=== PATIENT | female | born 1940 | race Caucasian/White ===

== ENCOUNTER 2016-12-24 08:02 | Outpatient (CLI) | payer MEDICARE, OTHER ==
[2016-12-24 12:39] LABS: BASOPHILS # (AUTO) 0.1 10^3/uL (0.0-0.1); BASOPHILS % (AUTO) 1.3 %; EOSINOPHILS # (AUTO) 0.4 10^3/uL (0.0-0.7); EOSINOPHILS % (AUTO) 4.7 %; HCT - HEMATOCRIT 42.6 % (37.0-47.0); HGB - HEMOGLOBIN 14.5 g/dL (12.0-16.0); LYMPHOCYTES % (AUTO) 25.5 %; MEAN CORPUSCULAR HEMOGLOBIN 28.5 pg (27.0-31.0); MONOCYTES # (AUTO) 0.7 10^3/uL (0.0-1.0); MONOCYTES % (AUTO) 8.8 %; NEUTROPHILS # (AUTO) 4.8 10^3/uL (1.5-6.6); NEUTROPHILS % (AUTO) 59.7 %; RED BLOOD COUNT 5.07 10^6/uL (4.20-5.40); RED CELL DISTRIBUTION WIDTH 15.3 % (12.0-15.0)
[2016-12-24 13:43] LABS: ALBUMIN/GLOBULIN RATIO 1.5 (1.0-2.2); BILIRUBIN,TOTAL 0.8 mg/dL (0.2-1.0); BUN - BLOOD UREA NITROGEN 12 mg/dL (6-20); CALCIUM 9.5 mg/dL (8.5-10.3); CARBON DIOXIDE - CO2 29 mmol/L (21-32); CHLORIDE 95 mmol/L (101-111); CHOL/HDL RATIO 3.1 (<4.4); CHOLESTEROL 150 mg/dL; CREATININE 0.7 mg/dL (0.4-1.0); GFR - MDRD 81 (>89); GLUCOSE 87 mg/dL (70-100); HDL CHOLESTEROL 48 mg/dL; LDL/HDL RATIO 1.7 (<4.4); POTASSIUM 3.6 mmol/L (3.5-5.0); SODIUM 131 mmol/L (135-145); TRIGLYCERIDES 106 mg/dL; VLDL CHOLESTEROL 21 mg/dL
== END 2016-12-24 08:03 | disposition home or self-care (01) ==
LOC: LAB.R 08:02
PROVIDERS: ATTEND Internal Medicine
DX: E78.5 Hyperlipidemia, unspecified (principal); Z79.899 Other long term (current) drug therapy; D12.6 Benign neoplasm of colon, unspecified; I10 Essential (primary) hypertension
CPT/HCPCS: 80053; 80061; 85025

== ENCOUNTER 2017-01-06 13:02 | Outpatient (CLI) | payer MEDICARE, OTHER ==
--- NOTE | 2017-01-07 13:41 | Mammography Report ---
DIGITAL SCREENING MAMMOGRAM: 01/06/2017 CLINICAL INDICATION: A 76-year-old, for screening. COMPARISON: 12/2014, 09/2012, 06/2010, 06/2009. TECHNIQUE: Routine CC and MLO projections were obtained of the breasts. FINDINGS: Scattered fibroglandular tissue is present within the breasts. There are no dominant bertrand s, suspicious microcalcifications, or secondary signs of malignancy. In comparison to the previous st udies, there are no significant changes. ASSESSMENT: NO MAMMOGRAPHIC EVIDENCE OF MALIGNANCY. NO SIGNIFICANT INTERVAL CHANGES. RECOMMENDATION: Screening mammography is recommended annually. BIRADS category 1 - negative. STANDARD QUALIFYING STATEMENTS 1. This examination was reviewed with the aid of Computed-Aided Detection (CAD). 2. A negative or benign imaging report should not delay biopsy if clinically suspicious findings are present. Consider surgical consultation if warranted. More than 5% of cancers are not identified by i maging. 3. Dense breasts may obscure an underlying neoplasm. JOB #: [id number] EXT JOB #:[id number]
== END 2017-01-06 13:03 | disposition home or self-care (01) ==
LOC: DI 13:02
PROVIDERS: ATTEND Internal Medicine
DX: Z12.31 Encounter for screening mammogram for malignant neoplasm of breast (principal)
CPT/HCPCS: 77067

== ENCOUNTER 2018-01-13 15:30 | Outpatient (CLI) | payer MEDICARE, OTHER ==
--- NOTE | 2018-01-14 15:56 | Mammography Report ---
Reason: SCREENING MAMMO Procedure Date: 01/13/2018 Accession Number: [id number] / [id number] Procedure: [facility]O - Screening Mammo Dig Bilat CPT Code: FULL RESULT: EXAM: Screening Mammo Dig Bilat DATE: 01/13/2018 4:00 PM CLINICAL HISTORY: Screening mammogram TECHNIQUE: Bilateral CC and MLO views were obtained. COMPARISON: Mammogram 01/06/2017 FINDINGS: There are scattered fibroglandular densities. There are benign-appearing calcifications and lymph nodes. No suspicious masses, clustered microcalcifications, or regions of architectural distortion are identified. IMPRESSION: Benign findings RECOMMENDATION: Routine annual screening unless otherwise clinically indicated. BIRADS CATEGORY 2: Benign findings STANDARD QUALIFYING STATEMENTS: 1. This examination was reviewed with the aid of Computer-Aided Detection (CAD). 2. A negative or benign imaging report should not delay biopsy if clinically suspicious findings are present. Consider surgical consultation if warrented. More than 5% of cancers are not identified by imaging. 3. Dense breasts may obscure an underlying neoplasm.
== END 2018-01-13 15:31 | disposition home or self-care (01) ==
LOC: DI 15:30
PROVIDERS: ATTEND Internal Medicine
DX: Z12.31 Encounter for screening mammogram for malignant neoplasm of breast (principal)
CPT/HCPCS: 77067

== ENCOUNTER 2018-01-28 08:30 | Outpatient (CLI) | payer MEDICARE, OTHER ==
[2018-01-28 13:40] LABS: BASOPHILS # (AUTO) 0.1 10^3/uL (0.0-0.1); BASOPHILS % (AUTO) 0.9 %; EOSINOPHILS # (AUTO) 0.4 10^3/uL (0.0-0.7); EOSINOPHILS % (AUTO) 4.3 %; HGB - HEMOGLOBIN 14.7 g/dL (12.0-16.0); LYMPHOCYTES % (AUTO) 23.4 %; MEAN CORPUSCULAR HEMOGLOBIN 29.1 pg (27.0-31.0); MEAN CORPUSCULAR HGB CONC 34.3 g/dL (32.0-36.0); MEAN PLATELET VOLUME 9.6 fL (7.9-10.8); MONOCYTES # (AUTO) 0.7 10^3/uL (0.0-1.0); MONOCYTES % (AUTO) 8.5 %; NEUTROPHILS # (AUTO) 5.2 10^3/uL (1.5-6.6); NEUTROPHILS % (AUTO) 62.9 %; PLT - PLATELET COUNT 293 10^3/uL (130-450); RED BLOOD COUNT 5.05 10^6/uL (4.20-5.40); RED CELL DISTRIBUTION WIDTH 15.2 % (12.0-15.0); WHITE BLOOD COUNT 8.3 x10^3/uL (4.8-10.8)
[2018-01-28 13:58] LABS: ALBUMIN 4.2 g/dL (3.2-5.5); ALBUMIN/GLOBULIN RATIO 1.3 (1.0-2.2); ALKALINE PHOSPHATASE 71 IU/L (42-121); ALT ALANINE AMINOTRANSFERASE 15 IU/L (10-60); AST ASPARTATE AMINOTRANSFERASE 21 IU/L (10-42); BUN - BLOOD UREA NITROGEN 12 mg/dL (6-20); CALCIUM 9.6 mg/dL (8.5-10.3); CARBON DIOXIDE - CO2 29 mmol/L (21-32); CHLORIDE 91 mmol/L (101-111); CHOL/HDL RATIO 3.2 (<4.4); CHOLESTEROL 151 mg/dL; CREATININE 0.7 mg/dL (0.4-1.0); GFR - MDRD 81 (>89); GLUCOSE 89 mg/dL (70-100); HDL CHOLESTEROL 47 mg/dL; LDL CHOLESTEROL,CALCULATED 77 mg/dL; LDL/HDL RATIO 1.6 (<4.4); SODIUM 130 mmol/L (135-145); TOTAL PROTEIN 7.4 g/dL (6.7-8.2); VLDL CHOLESTEROL 27 mg/dL
== END 2018-01-28 08:31 ==
LOC: LAB.R 08:30
PROVIDERS: ATTEND Internal Medicine
DX: R63.4 Abnormal weight loss (principal); E78.5 Hyperlipidemia, unspecified; I10 Essential (primary) hypertension; Z79.899 Other long term (current) drug therapy
CPT/HCPCS: 80053; 80061; 83721; 85025

== ENCOUNTER 2018-02-15 09:56 | Outpatient (CLI) | payer MEDICARE, OTHER ==
--- NOTE | 2018-02-16 13:01 | DEXA Report ---
Reason: OSTEOPENIA,POSTMENOPAUSAL Procedure Date: 02/15/2018 Accession Number: [id number] / [id number] Procedure: DEX - Dexa Spine and/or Hip CPT Code: FULL RESULT: EXAM: Dexa Spine and/or Hip DATE: 02/15/2018 10:30 AM CLINICAL HISTORY: OSTEOPENIA,POSTMENOPAUSAL TECHNIQUE: Dual energy x-ray absorptiometry (DXA) was performed on a [employer] System. Regions measured are the AP Spine, femoral neck, and if needed forearm. COMPARISON: None. In accordance with the International Society for Clinical Densitometry (ISCD) guidelines, data from previous exams may be reanalyzed using current recommendations and techniques. This is done to allow a more accurate basis for comparison with the current study. FINDINGS: The data for the lumbar spine is as follows: BMD (g/cm/cm) T-SCORE Z-SCORE REGION L1 1.016 -1.0 1.2 L2 1.092 -0.9 1.2 L3 1.172 -0.2 1.9 L4 1.290 0.7 2.9 TOTAL 1.166 -0.1 2.0 NOTE: All evaluable vertebrae are used for classification The data for the hip is as follows: BMD (g/cm/cm) T-SCORE Z-SCORE REGION Neck 0.786 -1.8 0.5 TOTAL 0.812 -1.6 0.6 NOTE: The femoral neck or total proximal femur, whichever is lowest, is used for classification. IMPRESSION: THE WHO CLASSIFICATION BASED ON THE INTERNATIONAL REFERENCE STANDARD IS OSTEOPENIA.. THE FRACTURE RISK IS INCREASED. RECOMMENDATION: Patients with diagnosis of osteoporosis or osteopenia should have regular bone mineral density assessment. For those eligible for Medicare, routine testing is allowed once every 2 years. Testing frequency can be increased for patients who have rapidly progressing disease or for those who are receiving medical therapy to restore bone mass. COMMENT: World Health Organization (WHO) definitions for osteoporosis and osteopenia: NORMAL BMD: T-score at -1.0 or higher, fracture risk is low OSTEOPENIA BMD: T-score between -1.0 and -2.5, fracture risk is increased. OSTEOPOROSIS BMD: T-score at -2.5 or lower, fracture risk is high. National Osteoporosis Foundation recommends: 1. Obtain adequate dietary calcium (at least 1200 mg per day) and vitamin D (400-800 international units per day). 2. Participate, as appropriate, in regular weightbearing and muscle-strengthening exercise. 3. Avoid tobacco use and reduce alcohol and caffeine intake. 4. For more detailed information see the website at www.NOF.org.
== END 2018-02-15 09:57 | disposition home or self-care (01) ==
LOC: DI 09:56
PROVIDERS: ATTEND Internal Medicine
DX: M85.88 Other specified disorders of bone density and structure, other site (principal); Z78.0 Asymptomatic menopausal state
CPT/HCPCS: 77080

== ENCOUNTER 2018-06-21 08:00 | Outpatient (CLI) | payer MEDICARE, OTHER ==
[2018-06-21 13:07] LABS: CALCIUM 9.9 mg/dL (8.5-10.3); CREATININE 0.8 mg/dL (0.4-1.0)
== END 2018-06-21 23:59 | disposition home or self-care (01) ==
LOC: LAB.R 08:00
PROVIDERS: ATTEND Internal Medicine
DX: I10 Essential (primary) hypertension (principal)
CPT/HCPCS: 80048

== ENCOUNTER 2018-08-23 13:12 | Outpatient (CLI) | payer MEDICARE, OTHER ==
[2018-08-23 15:12] LABS: THYROID STIMULATING HORMONE 1.42 uIU/mL (0.34-5.60)
[2018-08-23 15:15] LABS: FREE T4 (FREE THYROXINE) 1.06 ng/dL (0.58-1.64)
== END 2018-08-23 13:13 | disposition home or self-care (01) ==
LOC: LAB 13:12
PROVIDERS: ATTEND Family Medicine
DX: R25.1 Tremor, unspecified (principal); R63.4 Abnormal weight loss
CPT/HCPCS: 36415; 84439; 84443; 84481

== ENCOUNTER 2018-11-25 11:50 | Outpatient (CLI) | payer MEDICARE, OTHER | END 2018-11-25 11:51 | disposition critical access hospital (66) | LOC: EMS 11:50 | PROVIDERS: ATTEND Surgery | DX: M54.5 Low back pain (principal); W18.39XA Other fall on same level, initial encounter; Y92.008 Other place in unspecified non-institutional (private) residence as the place of occurrence of the external cause | CPT/HCPCS: A0425; A0429 ==

== ENCOUNTER 2018-11-25 11:55 | Emergency (ER) | payer MEDICARE, OTHER ==
--- NOTE | 2018-11-25 12:07 | ED Physician Documentation ---
History of Present Illness - Stated complaint Stated Complaint: GLF - Chief complaint Chief Complaint: Back Pain - History obtained from History obtained from: Patient - History of Present Illness Timing: Prior to arrival - Additonal information Additional information: Patient is a 78-year-old female presenting after mechanical fall just prior to arrival. Patient reports that she was on the ground organizing closed when she stood up and stumbled backwards. Patient reports she struck her right arm onto the door and then fell down directly onto her buttocks. Patient did not strike her head or lose consciousness. Patient was able to get up and walk on her own. Patient reports skin tear to the right forearm, as well as low back pain and coccyx pain. Patient denies headache, vision changes, nausea, vomiting, neck pain, other back pain, chest pain, abdominal pain or extremity injury. Patient was otherwise at her normal state of health prior to this incident. No anticoagulation. No other improving or worsening factors.Tetanus current. Review of Systems Constitutional: denies: Fever Eyes: denies: Loss of vision Cardiac: denies: Chest pain / pressure Respiratory: denies: Dyspnea GI: denies: Abdominal Pain, Nausea, Vomiting, Diarrhea : denies: Dysuria Skin: reports: Laceration (s) Musculoskeletal: reports: Back pain. denies: Neck pain, Extremity pain Neurologic: denies: Focal weakness, Numbness PD PAST MEDICAL HISTORY - Past Medical History Past Medical History: Yes Cardiovascular: Hypertension, High cholesterol Respiratory: None Endocrine/Autoimmune: None GI: Colon polyps : None HEENT: Chronic vision loss, Macular degeneration, Other Psych: Depression, Anxiety, Panic attacks Musculoskeletal: None Derm: None - Past Surgical History Past Surgical History: Yes General: Colonoscopy HEENT: Cataracts, Tonsil/Adenoidectomy - Present Medications Home Medications: Ambulatory Orders Medication Instructions Recorded Confirmed Atorvastatin Calcium [Lipitor] 1 tab DAILY 01/04/14 11/25/18 Hydrocodone/Acetaminophen 1 each PO Q6H PRN #14 tablet 11/25/18 [Hydrocodon-Acetaminophen 5-325] - Allergies Allergies/Adverse Reactions: Allergies Allergy/AdvReac Type Severity Reaction Status Date / Time No Known Drug Allergies Allergy Verified 11/25/18 12:04 - Social History Does the pt smoke?: No Smoking Status: Never smoker Does the pt drink ETOH?: No Does the pt have substance abuse?: No PD ED PE NORMAL - Vitals Vital signs reviewed: Yes - General General: Alert and oriented X 3, No acute distress, Well developed/nourished - HEENT HEENT: Atraumatic, Moist mucous membranes, Pharynx benign, Dentition benign - Neck Neck: No bony TTP - Cardiac Cardiac: RRR, No murmur - Respiratory Respiratory: No respiratory distress, Clear bilaterally - Abdomen Abdomen: Normal bowel sounds, Soft, Non tender, Non distended - Back Back: No spinal TTP, Other (Coccyx pain) - Derm Derm: Normal color, Warm and dry, No rash, Other (Superficial skin tear to dorsum of mid right forearm otherwise uncomplicated) - Extremities Extremities: No deformity, No tenderness to palpate - Neuro Neuro: Alert and oriented X 3, No motor deficit, No sensory deficit - Psych Psych: Normal mood, Normal affect Results - Vitals Vitals: Vital Signs - 24 hr 11/25/18 12:00 Temperature 36.5 C Heart Rate 84 Respiratory 16 Rate Blood Pressure 193/109 H O2 Saturation 95 Oxygen O2 Source Room air PD MEDICAL DECISION MAKING - ED course Complexity details: reviewed results, re-evaluated patient, considered differential, d/w patient, d/w search engine optimization consultant ED course: Patient presenting with pain to the coccyx only after fall backwards. Patient also has a skin tear to the right forearm, which does not require closure or other intervention. Tetanus is current. Do not find significant pain in the midline spine, but did obtain lumbar spine films, as well as pelvis x-rays. Do not feel patient requires other imaging or invasive testing at this time. Patient was comfortable did not require medications. Plain films returned with evidence of T12 wedging otherwise uncomplicated. Patient is not tender to the area and otherwise is neurovascularly intact. Discussed with orthopedic surgery who recommended TLSO bracing and follow-up with spine surgeon in [place]. Advised patient of results and recommendations including use of brace medications, supportive cares, and follow-up. Patient and family voiced understanding and are comfortable with discharge plan. Departure - Departure Disposition: 01 Home, Self Care Clinical Impression: Thoracic spine fracture Qualifiers: Encounter type: initial encounter Thoracic vertebra fracture level: T12 Fracture type: closed Fracture morphology: wedge compression Qualified Code(s): S22.080A - Wedge compression fracture of T11-T12 vertebra, initial encounter for closed fracture Condition: Good Instructions: ED Fx Comp Vertebral Follow-Up: Lan Agustin MD [Physician No Access] - Within 3 Days Prescriptions: Hydrocodone/Acetaminophen [Hydrocodon-Acetaminophen 5-325] 1 each PO Q6H PRN #14 tablet PRN Reason: pain Comments: Please keep the brace in place until orthopedic surgery follow-up. Recommend contacting [facility] orthopedics to schedule outpatient follow-up in the next 2 to 3 days. May use [place] as prescribed if needed, but please do not combine with Tylenol, alcohol, driving. If taking [place] regularly, recommend use of stool softener or laxative to avoid constipation. If not taking [place], may use ibuprofen/Tylenol. Return to ED sooner if expands worsening symptoms or have other concerns.
--- NOTE | 2018-11-25 13:06 | XRAY Report ---
Reason: fell onto buttocks, coccyx pain Procedure Date: 11/25/2018 Accession Number: [id number] / [id number] Procedure: XR - Pelvis 3 View CPT Code: FULL RESULT: EXAM: PELVIS RADIOGRAPHY EXAM DATE: 11/25/2018 12:19 PM. CLINICAL HISTORY: Fell onto buttocks, coccyx pain. COMPARISON: None. TECHNIQUE: 3 views. FINDINGS: Bones: Normal. No fracture or bone lesion. Joints: The visualized hip, pubis symphysis, and sacroiliac joints are preserved. No subluxation. Soft Tissues: Normal. No soft tissue swelling. IMPRESSION: Normal pelvis radiography. RADIA
--- NOTE | 2018-11-25 13:09 | XRAY Report ---
Reason: fell onto buttocks Procedure Date: 11/25/2018 Accession Number: [id number] / [id number] Procedure: XR - Lumbar Spine 2 View CPT Code: FULL RESULT: EXAM: LUMBOSACRAL SPINE RADIOGRAPHY EXAM DATE: 11/25/2018 12:19 PM. CLINICAL HISTORY: Fell onto buttocks. Pain. COMPARISONS: None. TECHNIQUE: 2 views. FINDINGS: Alignment: 8 degree levoscoliosis centered at L3-L4. 8 degree degenerative anterior subluxation at L4 on L5. Bones: Five [id number] lumbar vertebral bodies are present. Moderate to marked wedging at T12, with irregular inferior endplate. 20% loss of height posteriorly, 60% loss of height anteriorly. No retropulsed bone fragments. Mild kyphosis at this level. Old slight anterior wedging at T11. Disks: Normal. Disk heights are maintained. Facets: Marked degenerative changes at the L4-L5 and L5-S1 facets bilaterally. Sacroiliac Joints: Unremarkable. Soft Tissues: Normal. The visualized bowel gas pattern is normal. IMPRESSION: Acute moderate to marked wedging at T12 without a retropulsed bone fragment. RADIA The critical result notification system was initiated by Dr. Carrie Azul at 01:07 PM on 11/25/2018. The above critical result findings were discussed with Kathleen Brewer by Dr. Carrie Azul at 01:08 PM on 11/25/2018.
[2018-11-25] MEDS ORDERED: HYDROcod/ACETAM 5/325 MG TABLET PO STA (14:05)
[2018-11-25 15:03] VITALS: BP 207/104
== END 2018-11-25 15:09 | disposition home or self-care (01) ==
LOC: EDUNIT# → ED 11:55
DX: S22.080A Wedge compression fracture of T11-T12 vertebra, initial encounter for closed fracture (principal); W01.0XXA Fall on same level from slipping, tripping and stumbling without subsequent striking against object, initial encounter; Y93.89 Activity, other specified; I10 Essential (primary) hypertension
CPT/HCPCS: 72100; 72190; 99284; A9270

== ENCOUNTER 2019-01-12 08:30 | Outpatient (CLI) | payer MEDICARE, OTHER ==
[2019-01-12 09:16] LABS: CALCIUM 10.2 mg/dL (8.5-10.3); CREATININE 0.8 mg/dL (0.4-1.0)
[2019-01-12] MEDS ORDERED: IOVERSOL 320 100 ML VIAL IVP ONE ×2 (09:26→12:33)
--- NOTE | 2019-01-13 03:39 | CT Report ---
Reason: BALANCE PROBLEM, TREMOR Procedure Date: 01/12/2019 Accession Number: [id number] / [id number] Procedure: CT - ANGIO HEAD W/WO CPT Code: FULL RESULT: EXAM: CT ANGIOGRAM HEAD AND NECK CT SCAN HEAD WITHOUT AND WITH CONTRAST EXAM DATE: 01/12/2019 09:56 AM. CLINICAL HISTORY: Balance problem, tremor. COMPARISON: NECK ANGIO 01/12/2019 9:32 AM. TECHNIQUE: Routine axial helical CTA imaging was performed from the aortic arch through the [place]. Routine axial CT imaging of the head was performed prior to and following contrast administration. Reconstructions: Routine multiplanar 3D MIP reconstructions. IV contrast: 80 mL Optiray 320. NASCET Criteria are used for stenosis measurements. In accordance with CT protocol optimization, one or more of the following dose reduction techniques were utilized for this exam: automated exposure control, adjustment of mA and/or KV based on patient size, or use of iterative reconstructive technique. FINDINGS: CT SCAN HEAD: Parenchyma: No intraparenchymal hemorrhage. No evidence of mass, midline shift, or CT findings of acute infarction. Lazar-white differentiation is distinct. Mild cerebral white matter hypodensity is present, typically reflecting chronic microvascular ischemic changes in a patient of this age. On postcontrast images, no abnormal brain parenchymal enhancement is appreciated. Extra-axial Spaces: Normal for age. No subdural or epidural collections identified. Ventricles: Normal in size and position. Sinuses and Orbits: Postsurgical changes from cataract extractions are noted in the globes. Air-fluid levels and bubbly secretions are present in multiple paranasal sinuses, greatest involving the left maxillary sinus. The mastoid sinuses are not opacified. Bones: No evidence of fracture or calvarial defect. CT ANGIOGRAM EXTRACRANIAL CIRCULATION: Calcified plaque is present at the aortic arch. However, no high-grade stenosis of the great vessel origins is seen. Right Carotid: The common, internal, and external carotid arteries are patent. Mild calcified plaque is present at the carotid bifurcation without hemodynamically significant stenosis. Left Carotid: The common, internal, and external carotid arteries are patent. Mild calcified and noncalcified plaque is present at the carotid bifurcation without hemodynamically significant stenosis. Vertebrals: Atherosclerotic plaque is present at the origins of the bilateral vertebral arteries resulting in stenoses measuring up to 50% on the right. The left vertebral artery is slightly dominant. No hemodynamically significant stenosis is seen in their remaining cervical courses. CT ANGIOGRAM INTRACRANIAL CIRCULATION: The internal carotid arteries are patent from the superior cervical to the supraclinoid portions. Minimal calcified plaque is noted in the carotid siphons without high-grade stenosis. The bilateral A1, A2, M1, M2 segments are patent. No aneurysm is seen in the expected location of the anterior communicating artery. In the posterior circulation, the bilateral V4 segments are patent. A left AICA/PICA variant is present. The right PICA is well-demonstrated. The basilar artery is widely patent throughout its course to the terminus. There is normal contrast opacification in the superior cerebellar and posterior cerebral arteries. The posterior communicating arteries are patent. The dural venous sinuses are patent. Other: Mild emphysematous changes are present in the visualized upper lungs. The airway is patent. Moderate to severe degenerative changes are present throughout the cervical spine. No acute abnormality is seen in the remaining soft tissues of the neck. IMPRESSION: 1. No acute intracranial process or abnormal brain parenchymal enhancement. 2. Air-fluid levels and bubbly secretions are present in the paranasal sinuses. Clinical correlation for acute sinusitis is recommended. 3. Patent dural venous sinuses. 4. Patent intracranial and extracranial arteries without evidence of aneurysm, AVM, or critical stenosis. RADIA
--- NOTE | 2019-01-13 12:38 | CT Report ---
Reason: BALANCE PROBLEM TREMOR Procedure Date: 01/12/2019 Accession Number: [id number] / [id number] Procedure: CT - CERVICAL SPINE WO CPT Code: FULL RESULT: EXAM: CT CERVICAL SPINE WITH CONTRAST, RECONSTRUCTIONS EXAM DATE: 01/12/2019 09:56 AM. CLINICAL HISTORY: Balance problem tremor. COMPARISONS: None. TECHNIQUE: Axial, sagittal, coronal reconstructed images of the cervical spine were made from the data acquired for the CT angiogram of the neck with contrast. In accordance with CT protocol optimization, one or more of the following dose reduction techniques were utilized for this exam: automated exposure control, adjustment of mA and/or KV based on patient size, or use of iterative reconstructive technique. FINDINGS: Alignment: Retrolisthesis at C4-C5 measures 1-2 mm. Grade 1 anterolisthesis at C7-T1 measures 1-2 mm. There is suggestion of levoscoliosis in the mid to lower cervical region. Bones: No acute cervical spine fracture is identified. Sclerosis of the vertebral bodies is noted at C5, C6, and C7, likely related to severe underlying degenerative changes. Interspace Levels/Facets: C1-C2: Moderate degenerative changes are present anteriorly without canal cervical stenosis. C2-C3: There is mild left foraminal narrowing due to uncovertebral hypertrophy. Right-sided facet arthropathy is present without foraminal narrowing. The spinal canal is patent. C3-C4: There is mild bilateral foraminal narrowing due to uncovertebral hypertrophy and facet arthropathy. The spinal canal is patent. C4-C5: A posterior disk osteophyte complex results in mild spinal canal stenosis. There is moderate left foraminal narrowing due to uncovertebral hypertrophy. The right foramen is patent. C5-C6: Posterior disk osteophyte complex results in mild spinal canal stenosis. There is moderate right and mild left foraminal narrowing due to uncovertebral hypertrophy. C6-C7: A posterior disk osteophyte complex is eccentric and more prominent in the right paracentral region resulting in moderate right paracentral spinal canal stenosis. There is potential impingement of the spinal cord at this level. There is moderate bilateral foraminal narrowing due to uncovertebral hypertrophy. C7-T1: Right-sided facet arthropathy is present without spinal canal or foraminal stenosis. Spinal Canal: No abnormally enhancing areas by CT. Musculature: There is moderate diffuse fatty atrophy of the posterior paraspinal muscles. Other: The paravertebral and prevertebral soft tissues are normal. Mild emphysematous changes are present in the lung apices. IMPRESSION: 1. No acute cervical spine fracture. 2. Moderate to severe multilevel degenerative changes are present resulting in moderate right paracentral spinal canal stenosis at C6-C7 with potential impingement of the spinal cord. Dedicated cervical spine MRI can be obtained as clinically warranted for further evaluation. 3. No evidence of abnormal enhancement within the cervical spine. RADIA
== END 2019-01-12 08:31 | disposition home or self-care (01) ==
LOC: LAB 08:30
PROVIDERS: ATTEND Family Medicine
DX: R27.9 Unspecified lack of coordination (principal); R25.1 Tremor, unspecified
CPT/HCPCS: 36415; 70496; 70498; 72125; 80048; Q9967

== ENCOUNTER 2020-02-02 07:41 | Outpatient (CLI) | payer MEDICARE, OTHER ==
[2020-02-02 07:57] LABS: BASOPHILS # (AUTO) 0.1 10^3/uL (0.0-0.1); EOSINOPHILS # (AUTO) 0.3 10^3/uL (0.0-0.7); EOSINOPHILS % (AUTO) 3.3 %; HGB - HEMOGLOBIN 13.9 g/dL (12.0-16.0); LYMPHOCYTES # (AUTO) 1.8 10^3/uL (1.5-3.5); LYMPHOCYTES % (AUTO) 19.2 %; MEAN CORPUSCULAR HEMOGLOBIN 28.4 pg (27.0-31.0); MEAN CORPUSCULAR HGB CONC 32.9 g/dL (32.0-36.0); MEAN CORPUSCULAR VOLUME 86.1 fL (81.0-99.0); MONOCYTES # (AUTO) 0.7 10^3/uL (0.0-1.0); MONOCYTES % (AUTO) 7.1 %; NEUTROPHILS # (AUTO) 6.4 10^3/uL (1.5-6.6); NEUTROPHILS % (AUTO) 68.9 %; PLT - PLATELET COUNT 309 10^3/uL (130-450); RED CELL DISTRIBUTION WIDTH 15.2 % (12.0-15.0); WHITE BLOOD COUNT 9.3 x10^3/uL (4.8-10.8)
[2020-02-02 08:18] LABS: ALBUMIN 4.1 g/dL (3.2-5.5); ALBUMIN/GLOBULIN RATIO 1.1 (1.0-2.2); ALKALINE PHOSPHATASE 69 IU/L (42-121); ALT ALANINE AMINOTRANSFERASE 16 IU/L (10-60); AST ASPARTATE AMINOTRANSFERASE 17 IU/L (10-42); BILIRUBIN,TOTAL 1.1 mg/dL (0.2-1.0); BUN - BLOOD UREA NITROGEN 18 mg/dL (6-20); CARBON DIOXIDE - CO2 27 mmol/L (21-32); CHLORIDE 95 mmol/L (101-111); CHOLESTEROL 135 mg/dL; CREATININE 0.8 mg/dL (0.4-1.0); GLUCOSE 116 mg/dL (70-100); HDL CHOLESTEROL 45 mg/dL; LDL CHOLESTEROL,CALCULATED 72 mg/dL; LDL/HDL RATIO 1.6 (<4.4); SODIUM 131 mmol/L (135-145); TOTAL PROTEIN 7.8 g/dL (6.7-8.2); VLDL CHOLESTEROL 18 mg/dL
== END 2020-02-02 07:42 | disposition home or self-care (01) ==
LOC: LAB 07:41
PROVIDERS: ATTEND Family Medicine
DX: M19.90 Unspecified osteoarthritis, unspecified site (principal); R25.1 Tremor, unspecified; E78.5 Hyperlipidemia, unspecified; I95.2 Hypotension due to drugs; I10 Essential (primary) hypertension
CPT/HCPCS: 36415; 80053; 80061; 83721; 85025

== ENCOUNTER 2020-09-20 08:00 | Outpatient (CLI) | payer MEDICARE, OTHER ==
[2020-09-20 17:56] LABS: BASOPHILS # (AUTO) 0.1 10^3/uL (0.0-0.1); BASOPHILS % (AUTO) 0.6 %; EOSINOPHILS # (AUTO) 0.3 10^3/uL (0.0-0.7); EOSINOPHILS % (AUTO) 2.1 %; HCT - HEMATOCRIT 37.6 % (37.0-47.0); HGB - HEMOGLOBIN 11.9 g/dL (12.0-16.0); LYMPHOCYTES # (AUTO) 1.8 10^3/uL (1.5-3.5); LYMPHOCYTES % (AUTO) 11.1 %; MEAN CORPUSCULAR HEMOGLOBIN 26.5 pg (27.0-31.0); MEAN CORPUSCULAR HGB CONC 31.6 g/dL (32.0-36.0); MEAN CORPUSCULAR VOLUME 83.7 fL (81.0-99.0); MEAN PLATELET VOLUME 11.4 fL (7.9-10.8); MONOCYTES # (AUTO) 0.9 10^3/uL (0.0-1.0); MONOCYTES % (AUTO) 5.9 %; NEUTROPHILS # (AUTO) 12.7 10^3/uL (1.5-6.6); NEUTROPHILS % (AUTO) 79.5 %; PLT - PLATELET COUNT 473 10^3/uL (130-450); RED BLOOD COUNT 4.49 10^6/uL (4.20-5.40); RED CELL DISTRIBUTION WIDTH 15.1 % (12.0-15.0)
[2020-09-20 18:16] LABS: ALBUMIN 3.8 g/dL (3.2-5.5); ALBUMIN/GLOBULIN RATIO 0.9 (1.0-2.2); BILIRUBIN,TOTAL 0.8 mg/dL (0.2-1.0); CALCIUM 9.8 mg/dL (8.5-10.3); CREATININE 0.9 mg/dL (0.4-1.0); POTASSIUM 4.3 mmol/L (3.5-5.0)
[2020-09-20 18:23] LABS: THYROID STIMULATING HORMONE 1.52 uIU/mL (0.34-5.60)
== END 2020-09-20 23:59 | disposition home or self-care (01) ==
LOC: LAB.N 08:00
PROVIDERS: ATTEND Family Medicine
DX: R41.82 Altered mental status, unspecified (principal)
CPT/HCPCS: 36415; 80053; 82607; 83921; 84443; 85025; 87077; 87086; 87181

== ENCOUNTER 2020-09-27 14:57 | Inpatient (IN) | payer MEDICARE, OTHER ==
[2020-09-27] MEDS ORDERED: GADOBUTROL 10 MMOL/10 ML VIAL ONE (15:40)
[2020-09-27] MEDS ORDERED: GADOBUTROL 10 MMOL/10 ML VIAL IVP ONE (16:42)
--- NOTE | 2020-09-27 17:13 | MRI Report ---
PROCEDURE: Brain W/WO INDICATIONS: confusion X weeks CONTRAST: IV CONTRAST: Gadavist ml: 4.6 TECHNIQUE: Noncontrast axial T1 spin echo, axial T2 fast spin echo, sagittal and axial FLAIR, coronal T2 fast sp in echo, axial gradient echo, axial diffusion and ADC through the brain. After the administration of contrast, axial and coronal T1 spin echo with fat saturation through the brain. COMPARISON: Correlation is made with prior head CT, 01/12/2019. FINDINGS: Image quality: Motion artifact is noted. Images were repeated, with some improvement. CSF spaces: Basal cisterns are patent. No extra-axial fluid collections. There is mild narrowing of the left lateral ventricle anteriorly. Brain: Within the left frontal lobe anteriorly, there is a lobulated ovoid mass that measures 4.2 x 2.9 x 4 cm. This mass demonstrates a heterogeneous appearance with prominent surrounding edema. Hemos iderin deposition can be seen within this mass, largely along its margins. On postcontrast imaging, t here is moderate heterogeneous rim enhancement. There is mass effect seen associated with this mass, with 4 to 5 mm midline shift. Within the mid right frontal lobe, there is an additional mass seen laterally that demonstrates a het erogeneous appearance and demonstrates hemosiderin deposition, largely along its margins. This mass d emonstrates mild heterogeneous rim enhancement and measures 1.8 x 1.8 cm in greatest axial dimension, with a craniocaudal extent of 2.1 cm. Moderate surrounding edema can be seen. Within the right temporal parietal region, there is an additional heterogeneous mass with hemosiderin deposition and moderate stranding edema that measures 1.6 x 1.4 cm in greatest axial dimension, with a craniocaudal extent of 1.2 cm. On postcontrast imaging, there is mild to moderate rim enhancement. There is irregular FLAIR signal seen within the fahad, without hemosiderin deposition or kristi abnorma l enhancement. There is cerebral volume loss for age. There is periventricular white matter chronic small vessel is chemic change. Diffusion-weighted images demonstrate no acute ischemic insults. No chronic ischemic insults. Normal intravascular flow voids are present. Skull and face: Calvarial marrow is normal in signal. Orbits appear normal. Sinuses: Sinuses and mastoids appear clear. 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 There is mild mass effect seen from the left frontal lobe lesion, with 4 to 5 mm of midline shift. These masses are not seen in 2019, even in retrospect. Note: Case discussed by telephone with Dr. Faith at 4:07 PM [place] time on 09/27/2020. Reviewed by: Eduardo Sullivan MD on 09/27/2020 4:11 PM [facility] Approved by: Eduardo Sullivan MD on 09/27/2020 4:11 PM [facility] Station ID: [id number]
--- NOTE | 2020-09-27 17:13 | ED Physician Documentation ---
History of Present Illness - Stated complaint Stated Complaint: CONFUSION - Chief complaint Chief Complaint: General - Additonal information Additional information: 80-year-old female presents to the emergency department for evaluation of abrupt onset confusion. The patient's daughter and power of consumer attorney reports that she had been living independently until 2 weeks ago when she began to have increasing confusion. She was seen at a local walk-in clinic and they thought she may have a urinary tract infection so she was started on Macrobid. However that has not improved the symptoms. She has been having increased confusion, difficulty walking, and has been quite forgetful. Past medical history most significant for hyperlipidemia and hypertension Meds: Amlodipine, atorvastatin, losartan, Social daily active tobacco user. Patient's daughter Aleena is at the bedside. She is the DURABLE POWER OF COLLATOR and indicates that the patient is a DNR. Review of Systems Unable to obtain: Confused Constitutional: denies: Fever, Chills Eyes: reports: Reviewed and negative Ears: reports: Reviewed and negative Nose: reports: Reviewed and negative Throat: reports: Reviewed and negative Cardiac: reports: Reviewed and negative Respiratory: reports: Cough (Chronic) Skin: reports: Reviewed and negative Musculoskeletal: reports: Reviewed and negative PD PAST MEDICAL HISTORY - Past Medical History Cardiovascular: Hypertension, High cholesterol Respiratory: None Endocrine/Autoimmune: None GI: Colon polyps : None HEENT: Chronic vision loss, Macular degeneration, Other Psych: Depression, Anxiety, Panic attacks Musculoskeletal: None Derm: None - Past Surgical History Past Surgical History: Yes General: Colonoscopy HEENT: Cataracts, Tonsil/Adenoidectomy - Present Medications Home Medications: Ambulatory Orders Medication Instructions Recorded Confirmed Atorvastatin Calcium [Lipitor] 1 tab DAILY 01/04/14 09/27/20 Losartan Potassium 1 tab DAILY 09/27/20 09/27/20 amLODIPine [Norvasc] 1 tab DAILY 09/27/20 09/27/20 - Allergies Allergies/Adverse Reactions: Allergies Allergy/AdvReac Type Severity Reaction Status Date / Time No Known Drug Allergies Allergy Verified 09/27/20 15:01 - Social History Does the pt smoke?: No Smoking Status: Never smoker Does the pt drink ETOH?: No Does the pt have substance abuse?: No PD ED PE EXPANDED - General General: Alert, No acute distress - HEENT HEENT: PERRL - Neck Neck: Supple w/out meningeal sx. No: Adenopathy - Cardiac Cardiac: Irregularly irregular, Radial strong equal, Pedal strong equal, Cap refill < 2 sec. No: Murmur Present - Respiratory Respiratory: Rhonchi (Generalized rhonchorous breath sounds throughout.). No: Distress, Labored - Abdomen Abdomen: Normal Bowel sounds. No: Tender to palpation - Back Back: Normal exam - Neuro Neuro: Confused, Disoriented, CN deficit (Slurred speech. Right arm and leg weakness.), PERRL. No: CNII-XII intact, Normal gait (Now needs assistance with ambulation.), Normal speech - GCS Eye Opening: Spontaneous Motor: Obeys Commands Verbal: Oriented Total: 15 Results - Vitals Vitals: Vital Signs - 24 hr 09/27/20 09/27/20 15:01 19:50 Temperature 36.6 C 36.6 C Heart Rate 60 96 Respiratory 16 18 Rate Blood Pressure 119/80 121/86 H O2 Saturation 92 93 Oxygen O2 Source Room air - EKG (time done) 1705 Rate: Rate (enter#) (116) Rhythm: Atrial fibrillation Intervals: Prolonged QT. No: Normal [place] QRS: Normal Ischemia: Q waves (V1-V2) Compare to prior EKG: Old EKG unavailable Computer interpretation: Agree with computer - Labs Labs: Laboratory Tests 09/27/20 09/27/20 09/27/20 17:40 17:40 17:40 WBC 24.6 H RBC 4.71 Hgb 12.5 Hct 38.8 MCV 82.4 MCH 26.5 L MCHC 32.2 RDW 15.3 H Plt Count 450 MPV 10.4 Neut # (Auto) Not Reportable Lymph # (Auto) Not Reportable Bracken # (Auto) Not Reportable Eos # (Auto) Not Reportable Baso # (Auto) Not Reportable Absolute Nucleated RBC Not Reportable Total Counted 100 Band Neuts % (Manual) 3 Abnorm Lymph % (Manual) 0 Nucleated RBC % Not Reportable Neutrophils # (Manual) 22.9 H Lymphocytes # (Manual) 0.2 L Monocytes # (Manual) 1.2 H Eosinophils # (Manual) 0.2 Basophils # (Manual) 0.0 Differential Comment MANUAL DIFFERENTIAL WBC Morphology 1+ TOXIC GRANULATION Platelet Estimate NORMAL (130-450,000) Platelet Morphology NORMAL APPEARANCE RBC Morph Micro Appear NORMAL APPEARANCE Sodium 132 L Potassium 5.0 Chloride 96 L Carbon Dioxide 25 Anion Gap 11.0 BUN 26 H Creatinine 0.9 Estimated GFR (MDRD) 60 L Glucose 121 H Lactic Acid Calcium 10.2 Total Bilirubin 1.6 H AST 16 ALT 14 Alkaline Phosphatase 79 Troponin I High Sens 14.3 Total Protein 7.3 Albumin 3.2 Globulin 4.1 Albumin/Globulin Ratio 0.8 L Lipase 28 TSH 09/27/20 09/27/20 17:40 18:00 WBC RBC Hgb Hct MCV MCH MCHC RDW Plt Count MPV Neut # (Auto) Lymph # (Auto) Bracken # (Auto) Eos # (Auto) Baso # (Auto) Absolute Nucleated RBC Total Counted Band Neuts % (Manual) Abnorm Lymph % (Manual) Nucleated RBC % Neutrophils # (Manual) Lymphocytes # (Manual) Monocytes # (Manual) Eosinophils # (Manual) Basophils # (Manual) Differential Comment WBC Morphology Platelet Estimate Platelet Morphology RBC Morph Micro Appear Sodium Potassium Chloride Carbon Dioxide Anion Gap BUN Creatinine Estimated GFR (MDRD) Glucose Lactic Acid 1.9 Calcium Total Bilirubin AST ALT Alkaline Phosphatase Troponin I High Sens Total Protein Albumin Globulin Albumin/Globulin Ratio Lipase TSH 1.77 - Rads (name of study) MRI w/w brain Radiology: Final report received (Hemorrhagic metastasis until proven otherwise which is worse within the left frontal lobe. There is mild mass-effect seen from the left frontal lobe lesion with 4 to 5 mm of midline shift. These masses are not seen in 2019 even in retrospect.) CT Chest Radiology: Final report received (Extensive malignancy involving the mediastinum with a very large centrally necrotic mass and encasing the right inferior pulmonary vein narrowing the right superior pulmonary vein. Patchy bibasilar pneumonia. Cannot exclude underlying pulmonary lesions.), See rad report abd pelvis Radiology: Final report received, See rad report PD MEDICAL DECISION MAKING - ED course Complexity details: reviewed results, re-evaluated patient, considered differential, d/w family ED course: 80-year-old female was brought to the emergency department by her daughter for evaluation of 2 weeks worsening confusion and difficulty walking. Patient had been in her usual state of health until just about 2 weeks ago. On presentation the patient is certainly confused to time and place. I did note some minor right-sided weakness on exam. My colleague earlier in the day had ordered an MRI of her brain which had been completed by the time she arrived into the bed here in the emergency department. It unfortunately showed significant and severe metastatic disease with hemorrhage. I did also complete a CT of the chest abdomen pelvis which showed significant metastatic disease likely pulmonary in origin. The CT findings also suggest a pneumonia. Patient has a chronic cough which her daughter thinks may have worsened in the last few weeks. She has not had a fever but she does have room air saturations of 92%. CT does suggest a pneumonia. I have ordered ceftriaxone and azithromycin here in the emergency department. Patient does have a markedly elevated white blood cell count of 25,000. I spent time with the patient's children at the bedside and we discussed the extensive metastatic disease. The indicate that their mother would not want treatment of her cancer. They also indicate that the patient should be a DO NOT RESUSCITATE in the event of any acute cardiac arrest. Given her extensive metastatic disease it is likely that she will pass soon from either the pneumonia or the metastatic disease. The family would like antibiotics to treat the pneumonia. This case was presented to our nighttime hospitalist Dr. Greene who has agreed to bring the patient into the hospital for treatment of the pneumonia with the understanding that she is a DO NOT RESUSCITATE and no further work-up or treatment of the cancer will be offered. The family is in agreement with this. She will likely be referred to hospice or palliative care upon discharge Departure - Departure Disposition: 66 [facility] DC/[facility] Clinical Impression: Pneumonia, Metastatic cancer, Altered mental status
[2020-09-27 17:52] LABS: BASOPHILS % (AUTO) 0.2 %; EOSINOPHILS % (AUTO) 1.5 %; HCT - HEMATOCRIT 38.8 % (37.0-47.0); HGB - HEMOGLOBIN 12.5 g/dL (12.0-16.0); MEAN CORPUSCULAR HEMOGLOBIN 26.5 pg (27.0-31.0); MEAN CORPUSCULAR HGB CONC 32.2 g/dL (32.0-36.0); MEAN CORPUSCULAR VOLUME 82.4 fL (81.0-99.0); MEAN PLATELET VOLUME 10.4 fL (7.9-10.8); MONOCYTES % (AUTO) 4.4 %; NEUTROPHILS % (AUTO) 88.9 %; PLT - PLATELET COUNT 450 10^3/uL (130-450); RED BLOOD COUNT 4.71 10^6/uL (4.20-5.40); RED CELL DISTRIBUTION WIDTH 15.3 % (12.0-15.0); WHITE BLOOD COUNT 24.6 x10^3/uL (4.8-10.8)
[2020-09-27 17:54] LABS: ABNORMAL LYMPHS % (MANUAL) 0 %
[2020-09-27 18:11] LABS: ALBUMIN 3.2 g/dL (3.2-5.5); ALBUMIN/GLOBULIN RATIO 0.8 (1.0-2.2); BILIRUBIN,TOTAL 1.6 mg/dL (0.2-1.0); CALCIUM 10.2 mg/dL (8.5-10.3); CREATININE 0.9 mg/dL (0.4-1.0); TOTAL PROTEIN 7.3 g/dL (6.7-8.2)
[2020-09-27 18:31] LABS: BAND NEUTROPHILS % (MANUAL) 3 %; EOSINOPHILS # (MANUAL) 0.2 10^3/uL (0-0.7); LYMPHOCYTES # (MANUAL) 0.2 10^3/uL (1.5-3.5); LYMPHOCYTES % (MANUAL) 1 %; MONOCYTES # (MANUAL) 1.2 10^3/uL (0.0-1.0); NEUTROPHILS # (MANUAL) 22.9 10^3/uL (1.5-6.6)
[2020-09-27 18:32] LABS: DIFFERENTIAL COMMENT MANUAL DIFFERENTIAL; PLATELET ESTIMATE, MANUAL NORMAL (130-450,000) (NORMAL); PLATELET MORPHOLOGY NORMAL APPEARANCE (NORMAL); RBC MORPHOLOGY (MULTIPLE) NORMAL APPEARANCE (NORMAL); WBC MORPHOLOGY (MULTIPLE) 1+ TOXIC GRANULATION (NORMAL)
[2020-09-27] MEDS ORDERED: IOVERSOL 320 100 ML VIAL IVP ONE ×2 (18:38→23:26)
--- NOTE | 2020-09-27 19:58 | CT Report ---
PROCEDURE: Abdomen/Pelvis W INDICATIONS: brain mets? source CONTRAST: IV CONTRAST: Optiray 320 ml: 100 PO CONTRAST: *NO PO CONTRAST TECHNIQUE: After the administration of intravenous contrast, 5 mm thick sections acquired from the diaphragms to the symphysis. 5 mm thick coronal and sagittal reformats were acquired. For radiation dose reducti on, the following was used: automated exposure control, adjustment of mA and/or kV according to aida ent size. COMPARISON: CT chest with contrast and brain MRI with and without contrast dated 09/27/2020. FINDINGS: Image quality: Excellent. ABDOMEN: Lung bases: Minimal patchy bibasilar consolidation versus atelectasis. Extensive mediastinal mass is minimally visualized on this study. Please refer to the chest CT report. Mild cardiomegaly. Solid organs: Question small focal metastatic lesion in the liver in the right lobe near the dome alberto suring approximately 1.3 cm. Reference image 01/04. Gallbladder is unremarkable Biliary system is non dilated. Pancreas enhances normally. No adrenal nodules. Kidneys demonstrate normal size and enhan cement, without hydronephrosis. Peritoneum and bowel: Bowel loops demonstrate normal wall thickness and caliber. No free fluid or a ir. Nodes and vessels: No retroperitoneal or mesenteric adenopathy by size criteria. Aorta is tortuous a nd contains atherosclerotic calcifications. It is ectatic but not frankly aneurysmal. It measures 2.8 cm in diameter. Miscellaneous: No ventral hernias. PELVIS: Genitourinary: Bladder wall thickness is normal. Miscellaneous: No inguinal hernias or adenopathy. Bones: There is a marked compression fracture of T12, with mild posterior bony retropulsion and resul tant mild canal stenosis. It may potentially be a pathologic fracture. This is not definite. There is lucency present in the posterior third of the vertebra. This fracture is likely subacute. No other b jake lesions identified. IMPRESSION: 1. Please refer to the chest CT report for description of the mediastinal malignancy. 2. Question 1.3 cm liver metastatic lesion near the dome of the liver. 3. A high-grade T12 compression fracture is likely subacute. It may be pathologic. There is bony retr opulsion resulting in mild canal stenosis. Reviewed by: Grayson Mcgovern MD on 09/27/2020 7:57 PM PDT Approved by: Grayson Mcgovern MD on 09/27/2020 7:57 PM PDT Station ID: [id number]
--- NOTE | 2020-09-27 20:04 | CT Report ---
PROCEDURE: CHEST W INDICATIONS: brain cancer; ? mets CONTRAST: IV CONTRAST: Optiray 320 ml: 100 PO CONTRAST: *NO PO CONTRAST TECHNIQUE: After the administration of intravenous contrast, 5 mm thick sections acquired from the pulmonary api buster to the posterior costophrenic angles. 7 mm thick coronal MIP reformats were acquired. For radia tion dose reduction, the following was used: automated exposure control, adjustment of mA and/or kV according to patient size. COMPARISON: None. FINDINGS: Image quality: Excellent. Lungs and pleura: There is centrilobular emphysema and pulmonary interstitial fibrosis. There is foca l bibasilar consolidation. Cannot exclude underlying pulmonary masses. Mediastinum: Mild four-chamber cardiomegaly. No pericardial effusion. Very large necrotic mass involv ing the mediastinum and right hilum posteriorly impresses on the left atrium is severely narrowing th e left atrium. It encases and narrows the right inferior pulmonary vein and compresses and narrows th e right superior pulmonary vein. On image 31/2 it measures approximately 10.3 x 4.6 cm. There is left hilar adenopathy. There is precarinal necrotic adenopathy. Thoracic aorta and central pulmonary donna symone are normal in size. Esophagus is normal in caliber. No hiatal hernia. Bones and chest wall: High-grade T12 compression fracture, likely subacute. Cannot exclude pathologic fracture. Mild bony retropulsion with mild canal stenosis. No axillary or supraclavicular adenopathy by size criteria. The thyroid is normal in size and there are no incidental findings.. Abdomen: There is a small dome of liver metastatic lesion. IMPRESSION: 1. There is extensive malignancy involving the mediastinum with a very large centrally necrotic media stinal mass posteriorly compressing on the left atrium and narrowing and encasing the right inferior pulmonary vein and narrowing the right superior pulmonary vein. There are other malignant mediastinal lymph nodes as well. 2. Patchy bibasilar pneumonia. Cannot exclude underlying pulmonary lesions. 3. High-grade T12 compression fracture, likely subacute. Cannot exclude pathologic compression. Mild associated canal stenosis. 4. Dome of liver metastatic lesion. 5. Centrilobular emphysema and pulmonary interstitial fibrosis. CLINICAL RECOMMENDATION STATEMENTS: In patients <35 years with an ITN detected on CT, MRI, or extrathyroidal ultrasound, the Committee re commends further evaluation with dedicated thyroid ultrasound if the nodule is ?1 cm and has no suspi cious imaging features, and if the patient has normal life expectancy. In patients ?35 years with an ITN detected on CT, MRI, or extrathyroidal ultrasound, the Committee re commends further evaluation with dedicated thyroid ultrasound if the nodule is ?1.5 cm and has no galina picious imaging features, and if the patient has normal life expectancy. (ACR, 2014) Reviewed by: Grayson Mcgovern MD on 09/27/2020 8:03 PM PDT Approved by: Grayson Mcgovern MD on 09/27/2020 8:03 PM PDT Station ID: [id number]
[2020-09-27] MEDS ORDERED: SODIUM CHLORIDE FLUSH 0.9% 10 ML SYRINGE IVP PRN (20:35)
[2020-09-27] MEDS ORDERED: ONDANSETRON 4 MG/2 ML VIAL IVP PRN (20:35)
[2020-09-27] MEDS ORDERED: MORPHINE 2 MG/ML CARPUJECT IVP PRN (20:35)
[2020-09-27] MEDS ORDERED: ACETAMINOPHEN 325 MG TABLET PO PRN (20:35)
[2020-09-27] MEDS ORDERED: AZITHROMYCIN INJ 500 MG in SODIUM CHLORIDE 0.9% 250 ML IV STA (20:36)
[2020-09-27] MEDS ORDERED: cefTRIAXone 1 GM in SODIUM CHLORIDE 0.9% MINIBAG 100 ML IV STA (20:36)
[2020-09-27] MEDS ORDERED: cefTRIAXone 1 GM VIAL ONE (20:42)
--- NOTE | 2020-09-27 20:42 | HISTORY & PHYSICAL EXAMINATION ---
Chief Complaint - Chief Complaint Chief Complaint: Confusion History of Present Illness - Admitted From Admitted From:: Home - History Obtained From Records Reviewed: Yes History obtained from: Family, ER Provider, EMR Exam Limitations: Patient is altered and unable to provide a history. - History of Present Illness HPI Comment/Other: This is a 80-year-old female with a past medical history significant for hypertension, hyperlipidemia, tobacco use who presents today due to increasing confusion. History is obtained from the family and the ER provider as patient is altered and unable to provide a meaningful history. Per family, her symptoms began about 2 weeks ago when she was noted become more confused and disoriented. She was seen by her primary care provider and diagnosed with a urinary tract infection and was prescribed Macrobid for this. She continued to have progressive confusion where she not even know her date of or the name of her daughter. She had an MRI scheduled this coming Thursday to evaluate for dementia. Patient currently reports feeling confused. She denies any pain. She does complain of a cough. While here in the emergency department, she underwent a MRI of the brain which was concerning for multiple hemorrhagic brain metastasis with a large lesion left frontal lobe with edema and mass-effect as well as a 4 to 5 mm midline shift. She then underwent a CT of the chest as well as abdomen pelvis which was concerning for mediastinal mass with multiple metastasis. There is also concern for bilateral pneumonia. The emergency department provider did discuss these findings with the family and they feel that given their mom's advanced age, she would not want aggressive treatment. They are agreeable to admission and antibiotics with the goal of transitioning to palliative/hospice at some point. Given the above findings, medicine was consulted for admission. She did receive ceftriaxone and azithromycin in the emergency department. I did discuss goals of care with the patient's daughter, Aleena, over the phone and she confirms that patient is a DNR. She also states that at this point in time, they do not want aggressive treatment of this malignancy. The goal is to transition to hospice when appropriate. History - Past Medical History Cardiovascular: reports: Hypertension, High cholesterol Respiratory: reports: None Endocrine/Autoimmune: reports: None GI: reports: Colon polyps : reports: None HEENT: reports: Chronic vision loss, Macular degeneration, Other Psych: reports: Depression, Anxiety, Panic attacks Musculoskeletal: reports: None Derm: reports: None - Past Surgical History General: reports: Colonoscopy HEENT: reports: Cataracts, Tonsil/Adenoidectomy - Family & Social History Family History Comment/Other: The patient is unable to provide family history due to her altered mental status. Social History Notes: The patient was living at home alone prior to her increasing confusion over the past 2 weeks. She is a lifelong smoker. Meds/Allgy - Home Medications Home Medications: Ambulatory Orders Medication Instructions Recorded Confirmed Atorvastatin Calcium [Lipitor] 1 tab DAILY 01/04/14 09/27/20 Losartan Potassium 1 tab DAILY 09/27/20 09/27/20 amLODIPine [Norvasc] 1 tab DAILY 09/27/20 09/27/20 - Allergies Allergies/Adverse Reactions: Allergies Allergy/AdvReac Type Severity Reaction Status Date / Time No Known Drug Allergies Allergy Verified 09/27/20 15:01 Review of Systems - Cardiovascular Cariovascular: denies: Chest pain, Exertional dyspnea - Respiratory Respiratory: reports: Cough. denies: SOB at rest - Musculoskeletal Musculoskeletal: denies: Back pain - All Other Systems All Other Systems: reports: Other (ROS is limited due to her encephalopathy.) Prior Level of Functionality: She was living alone and was independent prior to this. Exam - Vital Signs Reviewed Vital Signs: Yes Vital Signs: Vital Signs x48h Temp Pulse Resp BP Pulse Ox 09/27/20 19:50 36.6 C 96 18 121/86 H 93 09/27/20 15:01 36.6 C 60 16 119/80 92 - Physical Exam General Appearance: positive: No acute distress, Alert Eyes Bilateral: positive: Normal inspection, PERRL, Conjunctivae nml ENT: positive: ENT inspection nml, Pharyngeal erythema Neck: positive: Nml inspection Respiratory: positive: No respiratory distress, Rhonchi. negative: Wheezes, Rales Cardiovascular: positive: Regular rate & rhythm. negative: Tachycardia, Systolic murmur Abdomen: positive: Non-tender, No distention. negative: Tenderness Skin: positive: Warm, Dry Extremities: positive: No pedal edema Neurologic/Psychiatric: positive: Disoriented to place, Disoriented to time, Slurred/abnml speech (Her speech is not slurred but is delayed.), Other (Neuro exam is limited due to her confusion. She is able to move all 4 extremities. There may be slight decrease in her strength in the right lower and right upper extremity. Sensation intact). negative: Disoriented to person Conclusion/Plan - Problem List (1) Encephalopathy Conclusion/Plan: Unfortunately, her progressive confusion and encephalopathy is secondary to the brain metastasis. MRI confirmed multiple metastasis with the most prominent mass being in the left frontal lobe with edema and mass-effect as well as a 4 to 5 mm midline shift. There has been no evidence of seizures. This finding was discussed with the patient's daughter and the plan is to hold off on further work-up. The goal is to transition to hospice when appropriate. At this time, we will admit her to inpatient status for the encephalopathy and pneumonia. No Lovenox given the hemorrhagic metastasis. Tylenol and Zofran as needed. No seizure prophylaxis given there has been no history of seizures to this point. Neurochecks. The plan is transition to hospice and a social work consult has been placed as well as a hospice referral for tomorrow (2) Brain metastasis Conclusion/Plan: This is the cause of her encephalopathy as mentioned above. Plan as mentioned above. 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 Family has declined further work-up and treatment of this. Plan is to transition to hospice when appropriate. (4) Community acquired pneumonia Conclusion/Plan: This was evident on CT of the chest which was concerning for bilateral infiltrates. Her white count is greater than 20,000. We will treat her empirically with ceftriaxone and azithromycin IV for community-acquired pneumonia. Tessalon as needed for cough. (5) Thoracic spine fracture Conclusion/Plan: Unclear if this is a pathologic fracture or secondary trauma. Her daughter reports having a fall a couple of years ago but this appears subacute on imaging. Pain control with Tylenol and morphine as needed. Qualifiers: Thoracic vertebra fracture level: T12 (6) Hypertension Conclusion/Plan: We will resume her home antihypertensives when appropriate. (7) Hyperlipidemia Conclusion/Plan: We will hold her home statin for time being. - Lab Results Lab results reviewed: Yes Fish Bones: 09/27/20 17:40 09/27/20 17:40 - Diagnostic Imaging Results Diagnostic Imaging Results: positive: Final report reviewed Core Measures - Anticipated LOS I expect patient to be DC'd or transferred within 96 hours.: Yes - Issues Hospital Issues and Management Plan: 80-year-old female presents with increasing confusion found to have multiple hemorrhagic metastasis in the brain likely due to mediastinal mass with evidence of midline shift. Also found to have pneumonia. She will be admitted for further management with hopes of transitioning the patient to hospice at some point. - DVT/VTE - Prophylaxis VTE/DVT Device ordered at admit?: Yes VTE/DVT Prophylaxis med ordered at admit?: No Not Ordered - Medical Reason: Contraindicated
--- OUTSIDE RECORDS SUMMARY | 2020-09-27 20:57 | EXTERNAL MEDICAL SUMMARY RPT | Continuity of Care Document ---
:1940 Demographics Phone Unavailable Preferred Language Unknown Marital Status Unknown Presybeterian Affiliation Unknown Race Unknown Ethnic Group Unknown Author Organization [place] Address [address] [id number] Phone Allergies Encounters Medications Problems Results
[2020-09-27] MEDS ORDERED: BENZONATATE 100 MG CAPSULE PO PRN (21:18)
[2020-09-27] MEDS ORDERED: MORPHINE SOL 10 MG/0.5 ML ORAL SYRINGE PO PRN (21:28)
[2020-09-27 22:03] LABS: B. PARAPERTUSSIS- RESP PCR PAN NOT DETECTED; B. PERTUSSIS- RESP PCR PANEL NOT DETECTED; C. PNEUMONIAE- RESP PCR PANEL NOT DETECTED; CORONAVIRUS 229E-RESP PCR NOT DETECTED; CORONAVIRUS HKU1-RESP PCR NOT DETECTED; CORONAVIRUS NL63-RESP PCR NOT DETECTED; CORONAVIRUS OC43-RESP PCR NOT DETECTED; HUMAN METAPNEUMOVIRUS NOT DETECTED; INFLUENZA B - RESP PCR PANEL NOT DETECTED; M. PNEUMONIAE- RESP PCR PANEL NOT DETECTED; PARAINFLUENZA VIRUS 1 NOT DETECTED; PARAINFLUENZA VIRUS 2 NOT DETECTED; PARAINFLUENZA VIRUS 3 NOT DETECTED; PARAINFLUENZA VIRUS 4 NOT DETECTED; RHINOVIRUS/ENTEROVIRUS NOT DETECTED; RSV- RESP PCR PANEL NOT DETECTED; SARS-CoV-2 -RESP PCR PANEL NOT DETECTED
[2020-09-28 04:43] LABS: BASOPHILS % (AUTO) 0.2 %; EOSINOPHILS % (AUTO) 2.2 %; HGB - HEMOGLOBIN 11.1 g/dL (12.0-16.0); LYMPHOCYTES % (AUTO) 3.6 %; MEAN CORPUSCULAR HEMOGLOBIN 26.9 pg (27.0-31.0); MEAN CORPUSCULAR HGB CONC 32.6 g/dL (32.0-36.0); MEAN CORPUSCULAR VOLUME 82.3 fL (81.0-99.0); MEAN PLATELET VOLUME 10.7 fL (7.9-10.8); MONOCYTES % (AUTO) 5.3 %; NEUTROPHILS % (AUTO) 87.6 %; PLT - PLATELET COUNT 401 10^3/uL (130-450); RED BLOOD COUNT 4.13 10^6/uL (4.20-5.40); RED CELL DISTRIBUTION WIDTH 15.2 % (12.0-15.0); WHITE BLOOD COUNT 20.3 x10^3/uL (4.8-10.8)
[2020-09-28 04:48] LABS: ABNORMAL LYMPHS % (MANUAL) 0 %
[2020-09-28 04:49] LABS: CALCIUM 9.6 mg/dL (8.5-10.3); CREATININE 0.9 mg/dL (0.4-1.0); POTASSIUM 3.7 mmol/L (3.5-5.0)
[2020-09-28 05:02] LABS: BAND NEUTROPHILS % (MANUAL) 2 %; EOSINOPHILS # (MANUAL) 0.4 10^3/uL (0-0.7); LYMPHOCYTES # (MANUAL) 0.4 10^3/uL (1.5-3.5); LYMPHOCYTES % (MANUAL) 2 %; NEUTROPHILS # (MANUAL) 18.5 10^3/uL (1.5-6.6); RBC MORPHOLOGY (MULTIPLE) 1+ ANISOCYTOSIS (NORMAL)
[2020-09-28 05:03] LABS: DIFFERENTIAL COMMENT MANUAL DIFFERENTIAL; PLATELET ESTIMATE, MANUAL NORMAL (130-450,000) (NORMAL); PLATELET MORPHOLOGY NORMAL APPEARANCE (NORMAL); WBC MORPHOLOGY (MULTIPLE) NORMAL APPEARANCE (NORMAL)
[2020-09-28 06:05] LABS: GLUCOSE, URINE (UA) NEGATIVE (NEGATIVE); KETONES,URINE (UA) TRACE mg/dL (NEGATIVE); LEUKOCYTE ESTERASE, URINE TRACE (NEGATIVE); NITRITE,URINE POSITIVE (NEGATIVE); OCCULT BLOOD,URINE LARGE (NEGATIVE); PH,URINE 6.5 PH (5.0-7.5); UROBILINOGEN,URINE 1 (NORMAL) E.U./dL (NORMAL)
[2020-09-28 06:15] LABS: CLARITY,URINE CLOUDY (CLEAR)
[2020-09-28 06:16] LABS: BILIRUBIN,URINE NEGATIVE (NEGATIVE); ICTOTEST,URINE NEGATIVE
[2020-09-28 06:17] LABS: BACTERIA,URINE Rare /HPF (None Seen); RBC,URINE TNTC /HPF (0-5); SQUAMOUS EPITHELIAL CELL,UR RARE Squamous (<= Few); WBC,URINE 0-3 /HPF (0-5)
--- NOTE | 2020-09-28 07:16 | PROVIDER PROGRESS NOTE ---
Subjective - Prog Note Date Prog Note Date: 09/28/20 Prog Note Time: 07:14 - Subjective Subjective: she is getting up to urinate several times now. Has blood tinged urine. on azithromycin and rocephin for her pneumonia. When she gets out of the bathroom she sits back in her chair. She prefers to sit up and not be in bed. She gets a little tearful as she stares at me. She is mute with her inability to say what she wants to say. But she understands what I am saying to her and will grasp my hand, press on it to emphasize she understands, and sometimes smiles or gets tearful depending on my news. She tries to mouth a word and then cannot get it out and will then collapse against the back of her chair, defeated. Current Medications - Current Medications Current Medications: Active Medications Acetaminophen (Acetaminophen 325 Mg Tablet) 650 mg PO Q4HR PRN PRN Reason: Pain 1 to 4 Benzonatate (Benzonatate 100 Mg Capsule) 100 mg PO TID PRN PRN Reason: Cough Azithromycin 500 mg/ Sodium (Chloride) 250 mls @ 250 mls/hr IV HS [facility] Stop: 09/29/20 21:59 Ceftriaxone Sodium 1 gm/ (Sodium Chloride) 100 mls @ 200 mls/hr IV HS [facility] Stop: 10/01/20 21:29 Morphine Sulfate (Morphine 2 Mg/Ml Carpuject) 2 mg IVP Q2HR PRN PRN Reason: Pain 8 to 10 Morphine Sulfate (Morphine Letha 10 Mg/0.5 Ml Oral Syringe) 5 mg PO Q2HR PRN PRN Reason: PAIN Ondansetron HCl (Ondansetron 4 Mg/2 Ml Vial) 4 mg IVP Q6HR PRN PRN Reason: Nausea / Vomiting Phenazopyridine HCl (Phenazopyridine 100 Mg Tablet) 100 mg PO TID [facility] Stop: 09/29/20 22:01 Sodium Chloride (Sodium Chloride Flush 0.9% 10 Ml Syringe) 10 ml IVP PRN PRN PRN Reason: NEEDED PER PROVIDER ORDERS Sodium Chloride (Sodium Chloride Flush 0.9% 10 Ml Syringe) 10 ml IVP 0100,0900,1700 [facility] Atorvastatin Calcium [Lipitor] 1 tab DAILY 01/04/14 Losartan Potassium 1 tab DAILY 09/27/20 amLODIPine [Norvasc] 1 tab DAILY 09/27/20 Objective - Vital Signs/Intake & Output Reviewed Vital Signs: Yes Vital Signs: Vital Signs x48h Temp Pulse Resp BP Pulse Ox 09/28/20 05:00 37.1 C 80 16 124/59 L 94 09/28/20 00:00 37.5 C 88 20 126/67 91 L Intake & Output: Intake & Output 09/25/20 09/26/20 09/27/20 09/28/20 23:59 23:59 23:59 23:59 Intake Total 350.000 Output Total 200 Balance 350.000 -200 - Objective General Appearance: positive: No acute distress, Other (Thin elderly female who is 5 foot 6 inches tall and weighs 44.5 kg. Bilateral temporal wasting, cachexia is present.) Eyes Bilateral: positive: PERRL ENT: positive: No signs of dehydration Neck: positive: No JVD. negative: Stiff neck Respiratory: positive: Rhonchi, Other (Very deep, very phlegmy bronchitic cough that is spasmodic and will last 6 or 7 seconds and then resolve.) Cardiovascular: positive: Regular rate & rhythm, Systolic murmur. negative: Gallop/S4, Friction rub Abdomen: positive: Non-tender, Nml bowel sounds, No distention, Hepatomegaly (Liver edge is firm and felt below the costal margin) Skin: positive: Warm, Dry Extremities: positive: Full ROM, No pedal edema Neurologic/Psychiatric: positive: CN's nml (2-12), Motor nml (Severe, needing 2 person assist to make sure she is able to stand and walk to the bathroom. But she is able to sit up in her chair without slumping and can hold herself up.), Weakness, Slurred/abnml speech (He is unable to verbalize, she is demonstrating to me that she understands what I am saying and will nod yes or no. Or grasp my hands to emphasize her emotional response to what I am asking and telling her.) - Lab Results Fish Bones: 09/28/20 04:15 09/28/20 04:15 Other Labs: Lab Results x24hrs 09/28/20 09/28/20 09/28/20 Range/Units 04:15 04:15 02:30 WBC 20.3 H (4.8-10.8) x10^3/uL RBC 4.13 L (4.20-5.40) 10^6/uL Hgb 11.1 L (12.0-16.0) g/dL Hct 34.0 L (37.0-47.0) % MCV 82.3 (81.0-99.0) fL MCH 26.9 L (27.0-31.0) pg MCHC 32.6 (32.0-36.0) g/dL RDW 15.2 H (12.0-15.0) % Plt Count 401 (130-450) 10^3/uL MPV 10.7 (7.9-10.8) fL Neut # (Auto) Not Reportable Lymph # (Auto) Not Reportable [place] # (Auto) Not Reportable Eos # (Auto) Not Reportable Baso # (Auto) Not Reportable Absolute Nucleated RBC Not Reportable Total Counted 100 Band Neuts % (Manual) 2 (0 - 10) % Abnorm Lymph % (Manual) 0 % Nucleated RBC % Not Reportable Neutrophils # (Manual) 18.5 H (1.5-6.6) 10^3/uL Lymphocytes # (Manual) 0.4 L (1.5-3.5) 10^3/uL Monocytes # (Manual) 1.0 (0.0-1.0) 10^3/uL Eosinophils # (Manual) 0.4 (0-0.7) 10^3/uL Basophils # (Manual) 0.0 (0-0.1) 10^3/uL Differential Comment MANUAL DIFFERENTIAL WBC Morphology NORMAL APPEARANCE (NORMAL) Platelet Estimate NORMAL (130-450,000) (NORMAL) Platelet Morphology NORMAL APPEARANCE (NORMAL) RBC Morph Micro Appear 1+ ANISOCYTOSIS (NORMAL) Sodium 134 L (135-145) mmol/L Potassium 3.7 (3.5-5.0) mmol/L Chloride 98 L (101-111) mmol/L Carbon Dioxide 26 (21-32) mmol/L Anion Gap 10.0 (6-13) BUN 26 H (6-20) mg/dL Creatinine 0.9 (0.4-1.0) mg/dL Estimated GFR (MDRD) 60 L (>89) Glucose 170 H (70-100) mg/dL Lactic Acid (0.5-2.2) mmol/L Calcium 9.6 (8.5-10.3) mg/dL Total Bilirubin (0.2-1.0) mg/dL AST (10-42) IU/L ALT (10-60) IU/L Alkaline Phosphatase (42-121) IU/L Troponin I High Sens (2.3-14.8) ng/L Total Protein (6.7-8.2) g/dL Albumin (3.2-5.5) g/dL Globulin (2.1-4.2) g/dL Albumin/Globulin Ratio (1.0-2.2) Lipase (22-51) U/L TSH (0.34-5.60) uIU/mL Urine Color RED/BLOODY Urine Clarity CLOUDY (CLEAR) Urine pH 6.5 (5.0-7.5) PH Ur Specific [place] 1.010 (1.002-1.030) Urine Protein (NEGATIVE) mg/dL Urine Glucose (UA) NEGATIVE (NEGATIVE) mg/dL Urine Ketones TRACE (NEGATIVE) mg/dL Urine Occult Blood LARGE H (NEGATIVE) Urine Nitrite POSITIVE H (NEGATIVE) Urine Bilirubin NEGATIVE (NEGATIVE) Urine Urobilinogen 1 (NORMAL) (NORMAL) E.U./dL Ur Leukocyte Esterase TRACE H (NEGATIVE) Urine RBC TNTC H (0-5) /HPF Urine WBC 0-3 (0-5) /HPF Ur Squamous Epith Cells RARE Squamous (<= Few) Urine Bacteria Rare (None Seen) /HPF Ur Microscopic Review INDICATED Urine Culture Comments INDICATED Nasal Adenovirus (PCR) Nasal B. parapertussis DNA (PCR) Nasal Coronavir 229E PCR Nasal Coronavir HKU1 PCR Nasal Coronavir NL63 PCR Nasal Coronavir OC43 PCR Nasal Enterovir/Rhinovir PCR Nasal Influenza B PCR Nasal Parainfluen 1 PCR Nasal Parainfluen 2 PCR Nasal Parainfluen 3 PCR Nasal Parainfluen 4 PCR Nasal RSV (PCR) Nasal B.pertussis DNA PCR Nasal C.pneumoniae (PCR) Jeremi Human Metapneumo PCR Nasal M.pneumoniae (PCR) Nasal SARS-CoV-2 (PCR) 09/27/20 09/27/20 09/27/20 Range/Units 20:48 18:00 17:40 WBC (4.8-10.8) x10^3/uL RBC (4.20-5.40) 10^6/uL Hgb (12.0-16.0) g/dL Hct (37.0-47.0) % MCV (81.0-99.0) fL MCH (27.0-31.0) pg MCHC (32.0-36.0) g/dL RDW (12.0-15.0) % Plt Count (130-450) 10^3/uL MPV (7.9-10.8) fL Neut # (Auto) Lymph # (Auto) [place] # (Auto) Eos # (Auto) Baso # (Auto) Absolute Nucleated RBC Total Counted Band Neuts % (Manual) (0 - 10) % Abnorm Lymph % (Manual) % Nucleated RBC % Neutrophils # (Manual) (1.5-6.6) 10^3/uL Lymphocytes # (Manual) (1.5-3.5) 10^3/uL Monocytes # (Manual) (0.0-1.0) 10^3/uL Eosinophils # (Manual) (0-0.7) 10^3/uL Basophils # (Manual) (0-0.1) 10^3/uL Differential Comment WBC Morphology (NORMAL) Platelet Estimate (NORMAL) Platelet Morphology (NORMAL) RBC Morph Micro Appear (NORMAL) Sodium (135-145) mmol/L Potassium (3.5-5.0) mmol/L Chloride (101-111) mmol/L Carbon Dioxide (21-32) mmol/L Anion Gap (6-13) BUN (6-20) mg/dL Creatinine (0.4-1.0) mg/dL Estimated GFR (MDRD) (>89) Glucose (70-100) mg/dL Lactic Acid 1.9 (0.5-2.2) mmol/L Calcium (8.5-10.3) mg/dL Total Bilirubin (0.2-1.0) mg/dL AST (10-42) IU/L ALT (10-60) IU/L Alkaline Phosphatase (42-121) IU/L Troponin I High Sens (2.3-14.8) ng/L Total Protein (6.7-8.2) g/dL Albumin (3.2-5.5) g/dL Globulin (2.1-4.2) g/dL Albumin/Globulin Ratio (1.0-2.2) Lipase (22-51) U/L TSH 1.77 (0.34-5.60) uIU/mL Urine Color Urine Clarity (CLEAR) Urine pH (5.0-7.5) PH Ur Specific [place] (1.002-1.030) Urine Protein (NEGATIVE) mg/dL Urine Glucose (UA) (NEGATIVE) mg/dL Urine Ketones (NEGATIVE) mg/dL Urine Occult Blood (NEGATIVE) Urine Nitrite (NEGATIVE) Urine Bilirubin (NEGATIVE) Urine Urobilinogen (NORMAL) E.U./dL Ur Leukocyte Esterase (NEGATIVE) Urine RBC (0-5) /HPF Urine WBC (0-5) /HPF Ur Squamous Epith Cells (<= Few) Urine Bacteria (None Seen) /HPF Ur Microscopic Review Urine Culture Comments Nasal Adenovirus (PCR) NOT DETECTED Nasal B. parapertussis DNA (PCR) NOT DETECTED Nasal Coronavir 229E PCR NOT DETECTED Nasal Coronavir HKU1 PCR NOT DETECTED Nasal Coronavir NL63 PCR NOT DETECTED Nasal Coronavir OC43 PCR NOT DETECTED Nasal Enterovir/Rhinovir PCR NOT DETECTED Nasal Influenza B PCR NOT DETECTED Nasal Parainfluen 1 PCR NOT DETECTED Nasal Parainfluen 2 PCR NOT DETECTED Nasal Parainfluen 3 PCR NOT DETECTED Nasal Parainfluen 4 PCR NOT DETECTED Nasal RSV (PCR) NOT DETECTED Nasal B.pertussis DNA PCR NOT DETECTED Nasal C.pneumoniae (PCR) NOT DETECTED Jeremi Human Metapneumo PCR NOT DETECTED Nasal M.pneumoniae (PCR) NOT DETECTED Nasal SARS-CoV-2 (PCR) NOT DETECTED 09/27/20 09/27/20 09/27/20 Range/Units 17:40 17:40 17:40 WBC 24.6 H (4.8-10.8) x10^3/uL RBC 4.71 (4.20-5.40) 10^6/uL Hgb 12.5 (12.0-16.0) g/dL Hct 38.8 (37.0-47.0) % MCV 82.4 (81.0-99.0) fL MCH 26.5 L (27.0-31.0) pg MCHC 32.2 (32.0-36.0) g/dL RDW 15.3 H (12.0-15.0) % Plt Count 450 (130-450) 10^3/uL MPV 10.4 (7.9-10.8) fL Neut # (Auto) Not Reportable Lymph # (Auto) Not Reportable [place] # (Auto) Not Reportable Eos # (Auto) Not Reportable Baso # (Auto) Not Reportable Absolute Nucleated RBC Not Reportable Total Counted 100 Band Neuts % (Manual) 3 (0 - 10) % Abnorm Lymph % (Manual) 0 % Nucleated RBC % Not Reportable Neutrophils # (Manual) 22.9 H (1.5-6.6) 10^3/uL Lymphocytes # (Manual) 0.2 L (1.5-3.5) 10^3/uL Monocytes # (Manual) 1.2 H (0.0-1.0) 10^3/uL Eosinophils # (Manual) 0.2 (0-0.7) 10^3/uL Basophils # (Manual) 0.0 (0-0.1) 10^3/uL Differential Comment MANUAL DIFFERENTIAL WBC Morphology 1+ TOXIC GRANULATION (NORMAL) Platelet Estimate NORMAL (130-450,000) (NORMAL) Platelet Morphology NORMAL APPEARANCE (NORMAL) RBC Morph Micro Appear NORMAL APPEARANCE (NORMAL) Sodium 132 L (135-145) mmol/L Potassium 5.0 (3.5-5.0) mmol/L Chloride 96 L (101-111) mmol/L Carbon Dioxide 25 (21-32) mmol/L Anion Gap 11.0 (6-13) BUN 26 H (6-20) mg/dL Creatinine 0.9 (0.4-1.0) mg/dL Estimated GFR (MDRD) 60 L (>89) Glucose 121 H (70-100) mg/dL Lactic Acid (0.5-2.2) mmol/L Calcium 10.2 (8.5-10.3) mg/dL Total Bilirubin 1.6 H (0.2-1.0) mg/dL AST 16 (10-42) IU/L ALT 14 (10-60) IU/L Alkaline Phosphatase 79 (42-121) IU/L Troponin I High Sens 14.3 (2.3-14.8) ng/L Total Protein 7.3 (6.7-8.2) g/dL Albumin 3.2 (3.2-5.5) g/dL Globulin 4.1 (2.1-4.2) g/dL Albumin/Globulin Ratio 0.8 L (1.0-2.2) Lipase 28 (22-51) U/L TSH (0.34-5.60) uIU/mL Urine Color Urine Clarity (CLEAR) Urine pH (5.0-7.5) PH Ur Specific [place] (1.002-1.030) Urine Protein (NEGATIVE) mg/dL Urine Glucose (UA) (NEGATIVE) mg/dL Urine Ketones (NEGATIVE) mg/dL Urine Occult Blood (NEGATIVE) Urine Nitrite (NEGATIVE) Urine Bilirubin (NEGATIVE) Urine Urobilinogen (NORMAL) E.U./dL Ur Leukocyte Esterase (NEGATIVE) Urine RBC (0-5) /HPF Urine WBC (0-5) /HPF Ur Squamous Epith Cells (<= Few) Urine Bacteria (None Seen) /HPF Ur Microscopic Review Urine Culture Comments Nasal Adenovirus (PCR) Nasal B. parapertussis DNA (PCR) Nasal Coronavir 229E PCR Nasal Coronavir HKU1 PCR Nasal Coronavir NL63 PCR Nasal Coronavir OC43 PCR Nasal Enterovir/Rhinovir PCR Nasal Influenza B PCR Nasal Parainfluen 1 PCR Nasal Parainfluen 2 PCR Nasal Parainfluen 3 PCR Nasal Parainfluen 4 PCR Nasal RSV (PCR) Nasal B.pertussis DNA PCR Nasal C.pneumoniae (PCR) Jeremi Human Metapneumo PCR Nasal M.pneumoniae (PCR) Nasal SARS-CoV-2 (PCR) ABX Reporting Has patient been on IV antibiotics over the past 48 hours?: Yes Assessment/Plan - Problem List (1) Encephalopathy Impression: There is not change in the plan as of this morning. She more alert and getting up to bathroom this morning. Her children say that she is not at baseline. She is described as a very verbal, stubborn, ornery person and this muteness is not her. Unfortunately, her progressive confusion and encephalopathy is secondary to the brain metastasis. MRI confirmed multiple metastasis with the most prominent mass being in the left frontal lobe with edema and mass-effect as well as a 4 to 5 mm midline shift. There has been no evidence of seizures. This finding was discussed with the patient's daughter and the plan is to hold off on further work-up. The goal is to transition to hospice when appropriate. At this time, we will admit her to inpatient status for the encephalopathy and pneumonia. No Lovenox given the hemorrhagic metastasis. Tylenol and Zofran as needed. No seizure prophylaxis given there has been no history of seizures to this point. Neurochecks. The plan is transition to hospice and a social work consult has been placed as well as a hospice referral for tomorrow (2) Brain metastasis Conclusion/Plan: This is the cause of her encephalopathy as mentioned above. Plan as mentioned above. NO change I have spoken to Dr. Mak of hospice. 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 Family has declined further work-up and treatment of this. Plan is to transition to hospice when appropriate. No change. I have spoken to Dr. Mak of hospice. Hospital bed will be delivered tomorrow. She will be opened up to hospice tomorrow and I can do discharge orders tomorrow morning. 45 minutes spent with the patient and the family doing advance care planning and speaking of the future and the practicality of taking care of this [place] elderly lady as she deteriorates further and eventually passes away. (4) Community acquired pneumonia Conclusion/Plan: This was evident on CT of the chest which was concerning for bilateral infiltrates. Her white count is 24,000. We will treat her empirically with ceftriaxone and azithromycin IV for community-acquired pneumonia. Tessalon as needed for cough. This am her WBC is 20 thousand. No change in plan (5) Thoracic spine fracture Conclusion/Plan: Unclear if this is a pathologic fracture or secondary trauma. Her daughter reports having a fall a couple of years ago but this appears subacute on imaging. Pain control with Tylenol and morphine as needed. She is ambulatory this morning and pain is not limiting her. Qualifiers: Thoracic vertebra fracture level: T12 (6) Hypertension Conclusion/Plan: We will resume her home antihypertensives when appropriate. 124/59 this morning. No use of meds today. (7) Hyperlipidemia Conclusion/Plan: We will hold her home statin for time being.
[2020-09-28] MEDS: SODIUM CHLORIDE FLUSH 0.9% 10 ML SYRINGE IVP SCH ×4 (07:45→23:11)
[2020-09-28] MEDS: PHENAZOPYRIDINE 100 MG TABLET PO SCH ×3 (08:20→20:58)
--- NOTE | 2020-09-28 11:57 | PHARMACY PROGRESS NOTE ---
- Best Possible Medication History Admit Date and Time: 09/27/202034 Processed by: Nursing Medication History completed: Yes Patient Interview: Completed (MED REC COMPLETED BY NURSING) As the person ultimately responsible for medication therapy, providers are able to order a medication from an existing home medication list in [facility] via the "Reconcile Routine" prior to Confirmation of that medication by practice support specialist. Such practice is discouraged except when the physician, in their clinical judgment, deems that a medical need exists for a medication without regard to previous use.
--- NOTE | 2020-09-28 16:19 | ADVANCE CARE PLANNING NOTE ---
Advance Care Planning - Planning Encounter Date: 09/28/20 Time: 13:30 Purpose: discuss care goals and patients directives Parties in Attendance: son, 2 daughters, patient, hospitalist Decisional Capacity of the Patient: She is now nonverbal from diffuse metastatic disease to the brain. She understands what we are saying. Is unable to respond. It is distressing to her. But she will nod her head or squeeze my hand especially when she is in agreement with something. - Diagnosis for Encounter (1) Mediastinal mass Summary: The patient has been coughing for years. But over the last few months the cough has been getting worse with increasing the loud phlegmy sounds. But as far as the family was concerned she seemed to be doing well, and was starting to lose weight but not severely so. She now presents with sudden confusion that is worse over the last week. She has a mediastinal mass on CT with mets to the brain, liver. - Encounter Subjective/Patient's Story: She is a fiercely independent elderly female who lost her to natural causes years ago. She has lived by herself since then. All of her children describe her as "ornery", fiercely independent, never complains, and likes her privacy. Even now, as her children have been taking care of her for the last week, she will intermittently ask one of them "what are you going home and taking your stuff with you". While she has had a daily cough that has been chronic, for years now, it was never something that was severe. Occasionally it would take her breath away but not on a regular basis. 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 On Mother's Day she was at a nearby [employer] already planning her [employer] planting for the spring. They do not even know when the last time was that she saw a doctor. A week ago she seemed to be a little confused when the daughter that lives nearby was visiting. She thought the patient had a urinary tract infection and was in to see Dr. Gerard and treated. But she did not get any better and over the course of the week deteriorated rapidly. She became unbalanced, did not want to eat or drink, was sleeping a lot. It was getting harder and harder for her to get up to go to the bathroom. On the day she was brought into the hospital she had made it about assisted down the hallway when she started leaning against the wall and sliding down and could not make it back. This was a brought her to the emergency room. 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 The patient is mute and her inability to speak now. She understands what I am saying and what her children are saying. Occasionally she gets tearful as she listens to his talk and what the news is. The children state that she was very clear about never wanting to leave her home. She does not want to be in hospitals or get treatment. And as such, as her advocates, they have decided not to do a biopsy, chemo, etc. They would prefer to take her home and have her spend what time she has left at home with their care. Objective/Medical Story: This is a 80-year-old female with a past medical history significant for hypertension, hyperlipidemia, tobacco use who presents today due to increasing confusion. History is obtained from the family and the ER provider as patient is altered and unable to provide a meaningful history. Per family, her symptoms began about 2 weeks ago when she was noted become more confused and disoriented. She was seen by her primary care provider and diagnosed with a urinary tract infection and was prescribed Macrobid for this. She continued to have progressive confusion where she not even know her date of or the name of her daughter. She had an MRI scheduled this coming Thursday to evaluate for dementia. Patient currently reports feeling confused. She denies any pain. She does complain of a cough. While here in the emergency department, she underwent a MRI of the brain which was concerning for multiple hemorrhagic brain metastasis with a large lesion left frontal lobe with edema and mass-effect as well as a 4 to 5 mm midline shift. She then underwent a CT of the chest as well as abdomen pelvis which was concerning for mediastinal mass with multiple metastasis. There is also concern for bilateral pneumonia. The emergency department provider did discuss these findings with the family and they feel that given their mom's advanced age, she would not want aggressive treatment. They are agreeable to admission and antibiotics with the goal of transitioning to palliative/hospice at some point. Given the above findings, medicine was consulted for admission. She did receive ceftriaxone and azithromycin in the emergency department. I did discuss goals of care with the patient's daughter, Aleena, over the phone and she confirms that patient is a DNR. She also states that at this point in time, they do not want aggressive treatment of this malignancy. The goal is to transition to hospice when appropriate. History - Past Medical History Cardiovascular: reports: Hypertension, High cholesterol Respiratory: reports: None Endocrine/Autoimmune: reports: None GI: reports: Colon polyps : reports: None HEENT: reports: Chronic vision loss, Macular degeneration, Other Psych: reports: Depression, Anxiety, Panic attacks Musculoskeletal: reports: None Derm: reports: None - Past Surgical History General: reports: Colonoscopy HEENT: reports: Cataracts, Tonsil/Adenoidectomy Goals of Care: 1. To keep her as comfortable as possible in her own home. 2. To let her pass away at home as peacefully as possible 3. They wish to be the ones to take care of her but would like some help. Plan: 1. I have already called for hospice referral. Dr. Mak is seen the patient. 2. Hospital bed will be delivered to the house tomorrow 3. I will discharge the patient tomorrow morning and hospice will have the comfort packet of medications ready 4. Social work has given the patient's family a list of agencies for private duty hire 5. Greater than 30 minutes was spent answering the family's questions. They asked about what to expect. How she would deteriorate. What should the response be and how they could keep her comfortable. They also asked for reassurance that the decision was the correct one. Code Status: Do Not Attempt Resuscitation Time spent on advance care plannin minutes
[2020-09-28] MEDS: AZITHROMYCIN 250 MG TABLET PO SCH (20:58)
[2020-09-28] MEDS ORDERED: AZITHROMYCIN INJ 500 MG in SODIUM CHLORIDE 0.9% 250 ML IV SCH (21:00)
[2020-09-28] MEDS ORDERED: cefTRIAXone 1 GM in SODIUM CHLORIDE 0.9% MINIBAG 100 ML IV SCH (21:00)
[2020-09-29 05:07] LABS: BASOPHILS % (AUTO) 0.2 %; EOSINOPHILS # (AUTO) 0.6 10^3/uL (0.0-0.7); EOSINOPHILS % (AUTO) 3.3 %; HCT - HEMATOCRIT 32.6 % (37.0-47.0); HGB - HEMOGLOBIN 10.6 g/dL (12.0-16.0); LYMPHOCYTES # (AUTO) 1.6 10^3/uL (1.5-3.5); LYMPHOCYTES % (AUTO) 9.1 %; MEAN CORPUSCULAR HEMOGLOBIN 26.6 pg (27.0-31.0); MEAN CORPUSCULAR HGB CONC 32.5 g/dL (32.0-36.0); MEAN CORPUSCULAR VOLUME 81.9 fL (81.0-99.0); MEAN PLATELET VOLUME 10.2 fL (7.9-10.8); MONOCYTES # (AUTO) 1.4 10^3/uL (0.0-1.0); MONOCYTES % (AUTO) 7.5 %; NEUTROPHILS # (AUTO) 14.3 10^3/uL (1.5-6.6); NEUTROPHILS % (AUTO) 79.3 %; PLT - PLATELET COUNT 364 10^3/uL (130-450); RED BLOOD COUNT 3.98 10^6/uL (4.20-5.40); RED CELL DISTRIBUTION WIDTH 15.1 % (12.0-15.0)
[2020-09-29 05:12] LABS: CALCIUM 9.1 mg/dL (8.5-10.3); CREATININE 0.7 mg/dL (0.4-1.0); POTASSIUM 3.7 mmol/L (3.5-5.0)
[2020-09-29] MEDS: PHENAZOPYRIDINE 100 MG TABLET PO SCH (05:33)
--- NOTE | 2020-09-29 07:25 | Discharge Plan ---
Discharge Plan Problem Reviewed?: Yes Disposition: 50 Hospice/Home DC/Xfer Condition: Good Diet: Soft Activity Restrictions: Activity as Tolerated Shower Restrictions: Yes Driving Restrictions: Yes Health Concerns: You have been having increasing confusion for 2 weeks and were treated for urinary tract infection a week ago. But your confusion continued to the point that you were so weak that you could not walk anymore and your family brought you to the emergency room. Very sadly we found you to have a mass underneath your chest bone. It sits between the 2 parts of your lung. We think it is cancer and that it is already metastasized to brain. Your family, who are your advocates, have described you is a very fiercely independent person that did not want a lot of aggressive things done to you. As such are being transitioned to hospice. Plan of Treatment: 1. You will be discharged to hospice today. A hospital bed is already waiting for you. 2. Medications for comfort such as Tylenol (fever, mild pain, headache), Zofran (nausea and vomiting), Haldol (delirium, psychosis, nausea), atropine drops (severe phlegm production and gurgling), morphine (pain, struggling to breathe, anxiety), and Ativan (anxiety) will be provided to you at home by Dr. Mak who is director of hospice. 3. Although your 3 children will be taking care of you, they will be hiring private duty caregivers to help you through this next phase of care. Care Goals: To peacefully at home Assessment: Patient seems to understand care goals. She is nonverbal, mute but nods her head, responds with her hands and eyes. These care goals were discussed with her in front of her children. No Smoking: If you smoke, Please STOP! Call for help. Follow-up with: Sharif Lucas MD [Primary Care Provider] - Major Mak MD [Provider Admit Priv/Credential] -
[2020-09-29] MEDS: AZITHROMYCIN 250 MG TABLET PO SCH (08:00)
[2020-09-29] MEDS: SODIUM CHLORIDE FLUSH 0.9% 10 ML SYRINGE IVP SCH (08:00)
[2020-09-29 08:13] VITALS: BP 158/79
--- NOTE | 2020-09-29 16:20 | DISCHARGE SUMMARY ---
"Discharge Summary Admit Date: 09/27/20 Discharge Date: 09/29/20 Discharging Provider: Ania Gilmore MD Primary Care Provider: Sharif Lucas MD Code Status: Do Not Attempt Resuscitation Condition at Discharge: Fair Discharge Disposition: 50 Hospice/Home DC/Xfer - DIAGNOSES Discharge Diagnoses with Status of Each Condition: 1. 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 Metastatic brain disease 3. Mediastinal mass 4. Community-acquired pneumonia 5. Thoracic spine fracture history 6. Hypertension 7. Hyperlipidemia - HPI History of Present Illness: This is a 80-year-old female with a past medical history significant for hypertension, hyperlipidemia, tobacco use who presents today due to increasing confusion. History is obtained from the family and the ER provider as patient is altered and unable to provide a meaningful history. Per family, her symptoms began about 2 weeks ago when she was noted become more confused and disoriented. She was seen by her primary care provider and diagnosed with a urinary tract infection and was prescribed Macrobid for this. She continued to have progressive confusion where she not even know her date of or the name of her daughter. She had an MRI scheduled this coming Thursday to evaluate for dementia. Patient currently reports feeling confused. She denies any pain. She does complain of a cough. While here in the emergency department, she underwent a MRI of the brain which was concerning for multiple hemorrhagic brain metastasis with a large lesion left frontal lobe with edema and mass-effect as well as a 4 to 5 mm midline shift. She then underwent a CT of the chest as well as abdomen pelvis which was concerning for mediastinal mass with multiple metastasis. There is also concern for bilateral pneumonia. The emergency department provider did discuss these findings with the family and they feel that given their mom's advanced age, she would not want aggressive treatment. They are agreeable to admission and antibiotics with the goal of transitioning to palliative/hospice at some point. Given the above findings, medicine was consulted for admission. She did receive ceftriaxone and azithromycin in the emergency department. I did discuss goals of care with the patient's daughter, Aleena, over the phone and she confirms that patient is a DNR. She also states that at this point in time, they do not want aggressive treatment of this malignancy. The goal is to transition to hospice when appropriate. - Past Medical History Cardiovascular: reports: Hypertension, High cholesterol Respiratory: reports: None Endocrine/Autoimmune: reports: None GI: reports: Colon polyps : reports: None HEENT: reports: Chronic vision loss, Macular degeneration, Other Psych: reports: Depression, Anxiety, Panic attacks Musculoskeletal: reports: None Derm: reports: None - Past Surgical History General: reports: Colonoscopy HEENT: reports: Cataracts, Tonsil/Adenoidectomy - CONSULTS | PROCEDURES Consultations: Major Mak MD (Hospice) Procedures: 1. Brain MRI with the left frontal lobe anteriorly having a lobulated ovoid mass. Heterogeneous appearance with prominent surrounding edema. Hemosiderin can be seen largely around its margins. On postcontrast imaging there is moderate heterogeneous rim of enhancement. There is mass-effect. Right frontal lobe has additional mass. Same changes. Right temporal parietal region also with same problem. These masses were not seen in 2019. 2. Abdomen pelvis CT with 1.3 cm liver metastatic lesion near the dome of the liver. High-grade T12 compression fracture that is subacute. 3. Chest CT with extensive malignancy involving the mediastinum with a very large centrally necrotic mediastinal mass posteriorly compressing the left atrium and narrowing encasing the right inferior pulmonary vein and narrowing the right superior pulmonary vein. Other malignant mediastinal lymph nodes seen as well. Patchy bibasilar pneumonia. High-grade T12 compression fracture, slightly subacute, cannot rule out pathologic compression. Dome of liver metastatic lesion. Centrilobular emphysema and pulmonary interstitial fibrosis. 4. Blood cultures negative 5. Urine culture with culture in progress, results to follow - HOSPITAL COURSE Hospital Course: This was very shocking news to the family. The patient started acting differently 2 weeks ago and prior to that was a completely independent and fiercely ornery elderly patient. She was out buying [employer] for her garden on Mother's Day. That is how quickly she is deteriorated. All 3 child efrain came to stay with her to help take care of her over the last 2 weeks because of her change in personality and weakness. A week ago when she became suddenly more deteriorated they treated her for the UTI and did not get better. Of all the things they assumed that did not think it was good to be cancer which has already spread so aggressively. Advance care planning conversation was had. Even though we are treating the patient for pneumonia and moving forward with possibility of diagnosis and treatment, both son and 2 daughters stated that mom would never want this. She is now mute with her inability to speak. However she seems to understand everything we say and will get occasionally tearful her grasp my hand or reach out to reassure her children. They did not want any further work-up or diagnostic evaluation. They wish to transition to hospice. I spoke to Dr. Major Mak who is seen the patient in consultation. He spoke to the family. She is now discharged to the hospice service. Temperature is 37.5. Pulse is 75. Blood pressure 158/79. Respirations 18 and 96% on room air. She is an alert, thin elderly female. Sporadically she has a thick bronchitic cough but she is comfortable, sitting upright in her chair, anxious to get going and get out of here. She has bilateral temporal wasting. Diminished muscle mass in arms and legs. Neck with shotty adenopathy. Lungs have coarse upper airway rhonchi and toward bases has phlegmy rhonchi as well. Occasional scattered wheeze. But she is comfortable. Regular rate and rhythm with a systolic ejection murmur and a hard knocking PMI. The abdomen has a palpable liver. Normal bowel sounds. Nontender. Extremities have trace edema. When she came in she was so weak she needed a 2 person max assist. She is now sitting upright on her own, able to stand on her own and walk to wheelchair to get transferred o ne of the hospital. Greater than 30 minutes was spent coordinating discharge. Prognosis is poor and is expected within the next few weeks. She does not want to eat or drink very much right now. - ALLERGIES Allergies/Adverse Reactions: Allergies Allergy/AdvReac Type Severity Reaction Status Date / Time No Known Drug Allergies Allergy Verified 09/27/20 15:01 - LABS Result Diagrams: 09/29/20 04:50 09/29/20 04:50"
== END 2020-09-29 10:05 | disposition hospice, home (50) | DRG 54 ==
LOC: ED 14:57 → MS2 20:35
PROVIDERS: ADMIT Internal Medicine; ATTEND Specialist
DX: C79.31 Secondary malignant neoplasm of brain (principal); C34.90 Malignant neoplasm of unspecified part of unspecified bronchus or lung; J18.9 Pneumonia, unspecified organism; R41.82 Altered mental status, unspecified; C38.8 Malignant neoplasm of overlapping sites of heart, mediastinum and pleura; M48.54XA Collapsed vertebra, not elsewhere classified, thoracic region, initial encounter for fracture; C78.7 Secondary malignant neoplasm of liver and intrahepatic bile duct; C77.8 Secondary and unspecified malignant neoplasm of lymph nodes of multiple regions; Z20.822 Contact with and (suspected) exposure to COVID-19; G13.1 Other systemic atrophy primarily affecting central nervous system in neoplastic disease; I10 Essential (primary) hypertension; E78.5 Hyperlipidemia, unspecified; Z87.440 Personal history of urinary (tract) infections; Z51.5 Encounter for palliative care; Z66 Do not resuscitate; F17.200 Nicotine dependence, unspecified, uncomplicated; R47.89 Other speech disturbances; R31.9 Hematuria, unspecified
CPT/HCPCS: 36415; 70553; 71260; 74177; 80048; 80053; 81001; 83605; 83690; 84443; 84484; 85025; 87040; 87086; 87631; 93005; 99285; A9270; A9585; Q9967; 0202U; 81003